=== PATIENT | female | born 1940 | race Caucasian/White ===

== ENCOUNTER → 2017-11-01 | Outpatient (CLI) | payer MEDICARE ==
[~2017-11-01] VITALS: Ht 160 cm; Wt 110.7 kg
[~2017-11-01] MED LIST: AC325T PO; AMLO5TAB2 PO; ASCO500T20 PO; ASP325T PO; CALC-80 PO; CATHETER FLUSH 10 ML SYR IV PRN; CHOL200049 PO; CYAN10006 PO; DCS100C PO; FENO135C PO; FEXO180T84 PO; FLUT16SP22 NS; GARL200T PO; HCT25T PO; LORA5TAB9 PO; MULT-974 PO; NAPR220T76 PO; OMEG1CAP51 PO; OMEP20CA12 PO; POTA99TA4 PO; PYRI100T2 PO; REGADENOSON 0.4 MG/5 ML SYR (LEXISCAN) IV ONE; RNT150T PO; SIMV40TA4 PO; VITA150T PO; VITA400T9 PO; [UNRECOGNIZED DRUG - CODE] PO
[2017-11-01 10:13] VITALS: BP 158/87
[2017-11-01 10:19] VITALS: BP 159/84
--- NOTE | 2017-11-01 17:42 | STRESS TEST ---
DATE OF SERVICE: 11/01/2017 LEXISCAN MYOVIEW STRESS TEST REPORT REFERRING PHYSICIAN: Aileen Farrell MD. Baseline heart rate is 76. Baseline blood pressure 157/81. Baseline EKG is sinus rhythm with no ischemic changes. In summary, the patient was injected with 10.65 mCi of technetium-99 Myoview and the resting images were obtained. Then, the patient received 0.4 mg of Lexiscan followed by 29.4 mCi of technetium-99 Myoview. Throughout the test, there were no EKG changes. The resting and stress images were reviewed and compared in the short axis, horizontal long axis, and vertical long axis views. Review of the images showed decreased uptake involving the mid to apical inferior wall, true apex and anteroapical segment with subtle reversibility. SSS is 6, SDS 2, TID value 0.83. On the gated images, the left ventricle appeared to be small in size with normal contractility. Calculated ejection fraction 92%, I believe it is an overestimation. CONCLUSION: 1. The patient tolerated Lexiscan well. 2. Extracardiac attenuation with mild ischemia involving the mid to apical inferior wall true apex. 3. Small left ventricular size with normal contractility, calculated ejection fraction 92%, I believe it is an overestimation of the left ventricular contractility. Job ID: [id number] DocumentID: [id number] Dictated Date: 11/01/2017 14:27:07 Missile Inspector Preflight Date: 11/01/2017 17:42:04 Dictated By: DIMITRY MONTES MD
== END ==
LOC: CARD 07:53
PROVIDERS: ATTEND Physician Assistant
DX: I25.10 Atherosclerotic heart disease of native coronary artery without angina pectoris (principal); I10 Essential (primary) hypertension; E78.2 Mixed hyperlipidemia; K21.9 Gastro-esophageal reflux disease without esophagitis
CPT/HCPCS: 78452; 93017

== ENCOUNTER 2017-11-15 06:48 | Day surgery (SDC) | payer MEDICARE ==
[~2017-11-15] VITALS: Ht 160 cm; Wt 110.7 kg
[2017-11-15] VITALS (12 sets, daily range): BP systolic 116–154; BP diastolic 59–86
[~2017-11-15 06:48] MED LIST changes: -CATHETER FLUSH 10 ML SYR IV PRN; -REGADENOSON 0.4 MG/5 ML SYR (LEXISCAN) IV ONE
--- OUTSIDE RECORDS SUMMARY | 2017-11-15 06:51 | XMS REPORT | Continuity of Care Document ---
Author Author [facility] Organization [facility] Address Unknown Phone Unavailable Allergies Active Description Code Type Severity Reaction Onset Reported/Identified Relationship to Patient Clinical Status Yes No Known Drug Allergies [id number] Drug Allergy Unknown N/A 08/29/2011 Medications There is no data. Problems Date Dx Coded Attending Type Code Diagnosis Diagnosed By 12/24/2014 Ot 786.09 12/24/2014 Ot 786.50 12/24/2014 DIMITRY MONTES MD Ot 272.4 12/24/2014 DIMITRY MONTES MD Ot 278.01 12/24/2014 DIMITRY MONTES MD Ot 401.9 12/24/2014 DIMITRY MONTES MD Ot 414.00 12/24/2014 DIMITRY MONTES MD Ot 272.4 12/24/2014 DIMITRY MONTES MD Ot 278.01 12/24/2014 DIMITRY MONTES MD Ot 401.9 12/24/2014 DIMITRY MONTES MD Ot 414.00 12/24/2014 DIMITRY MONTES MD Ot 272.4 12/24/2014 DIMITRY MONTES MD Ot 278.01 12/24/2014 DIMITRY MONTES MD Ot 401.9 12/24/2014 DIMITRY MONTES MD Ot 414.00 12/24/2014 DIMITRY MONTES MD Ot V85.41 12/24/2014 DIMITRY MONTES MD Ot 272.4 HYPERLIPIDEMIA NEC/NOS 12/24/2014 DIMITRY MONTES MD Ot 401.9 HYPERTENSION NOS 12/24/2014 DIMITRY MONTES MD Ot 414.01 CORONARY ATHEROSCLEROSIS OF [place] CORON 12/24/2014 DIMITRY MONTES MD Ot 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 12/24/2014 DIMITRY MONTES MD Ot 786.50 CHEST PAIN NOS 01/05/2015 DIMITRY MONTES MD Ot 518.89 01/12/2015 JYOTI MD, BASHAR J Ot 272.4 01/12/2015 JYOTI CALIXTO, BASJONATHAN J Ot 278.01 01/12/2015 JYOTI CALIXTO, BASHAR J Ot 401.9 01/12/2015 JYOTI CALIXTO, BASHAR J Ot 414.00 01/20/2015 JYOTI CALIXTO, BASHAR J Ot 272.4 01/20/2015 JYOTI CALIXTO, DIMITRY J Ot 278.01 01/20/2015 JYOTI CALIXTO, BASHAR J Ot 401.9 01/20/2015 JYOTI CALIXTO, BASHAR J Ot 414.00 01/20/2015 JYOTI CALIXTO, GELYHAR J Ot V85.41 02/06/2015 JYOTI CALIXTO, GELYHAR J Ot 272.4 02/06/2015 JYOTI CALIXTO, DIMITRY J Ot 278.01 02/06/2015 JYOTI CALIXTO, DIMITRY J Ot 401.9 02/06/2015 JYOTI CALIXTO, GELYHAR J Ot 414.00 02/06/2015 JYOTI CALIXTO, DIMITRY J Ot 272.4 02/06/2015 JYOTI CALIXTO, DIMITRY J Ot 278.01 02/06/2015 JYOTI CALIXTO, DIMITRY J Ot 401.9 02/06/2015 JYOTI CALIXTO, DIMITRY J Ot 414.00 02/06/2015 JYOTI CALIXTO, DIMITRY J Ot V85.41 02/14/2015 JYOTI CALIXTO, DIMITRY J Ot 518.89 02/14/2015 JYOTI CALIXTO, DIMITRY J Ot 518.89 11/01/2017 DIMITRY MONTES MD Ot 272.4 HYPERLIPIDEMIA NEC/NOS 11/01/2017 DIMITRY MONTES MD J Ot 278.01 MORBID OBESITY 11/01/2017 DIMITRY MONTES MD J Ot 401.9 HYPERTENSION NOS 11/01/2017 JYOTI CALIXTO, DIMITRY J Ot 414.00 CORON ATHEROSCLER NOS TYPE VESSEL, NATIV 11/01/2017 JYOTI CALIXTO, DIMITRY J Ot 272.4 HYPERLIPIDEMIA NEC/NOS 11/01/2017 JYOTI CALIXTO, DIMITRY J Ot 278.01 MORBID OBESITY 11/01/2017 JYOTI CALIXTO, DIMITRY J Ot 401.9 HYPERTENSION NOS 11/01/2017 JYOTI CALIXTO, DIMITRY J Ot 414.00 CORON ATHEROSCLER NOS TYPE VESSEL, NATIV 11/01/2017 DIMITRY MONTES MD J Ot 272.4 HYPERLIPIDEMIA NEC/NOS 11/01/2017 DIMITRY MONTES MD Ot 278.01 MORBID OBESITY 11/01/2017 DIMITRY MONTES MD Ot 401.9 HYPERTENSION NOS 11/01/2017 DIMITRY MONTES MD Ot 414.00 CORON ATHEROSCLER NOS TYPE VESSEL, NATIV 11/01/2017 DIMITRY MONTES MD Ot V85.41 BODY MASS INDEX 40.0-44.9, ADULT 11/01/2017 DIMITRY MONTES MD Ot 518.89 OTHER DISEASES OF LUNG, NEC 11/02/2017 KARIME DELUNA Ot E78.2 MIXED HYPERLIPIDEMIA 11/02/2017 KARIME DELUNA Ot I10 ESSENTIAL (PRIMARY) HYPERTENSION 11/02/2017 KARIME DELUNA Ot I25.10 ATHSCL HEART DISEASE OF [place] CORONARY 11/02/2017 KARIME DELUNA Ot K21.9 GASTRO-ESOPHAGEAL REFLUX DISEASE WITHOUT Procedures There is no data. Results There is no data. Encounters ACCT No. Visit Date/Time Discharge Status Pt. Type Provider Facility Loc./Unit Complaint [id number] 11/01/2017 07:53:00 11/01/2017 23:59:59 CLS Outpatient KARIME DELUNA [facility] CARD CAD [id number] 01/02/2015 08:40:00 01/02/2015 23:59:59 CLS Outpatient DIMITRY MONTES MD [facility] RAD LUNG DENSITY ON XRAY [id number] 12/24/2014 10:46:00 12/24/2014 19:04:00 DIS Outpatient DIMITRY MONTES MD [facility] CATH CAD HTN HLE ABNORMAL STRESS [id number] 12/17/2014 06:59:00 12/17/2014 23:59:59 CLS Outpatient DIMITRY MONTES MD [facility] CARD HTN,HLP,CAD [id number] 12/16/2014 11:35:00 12/16/2014 23:59:59 CLS Outpatient DIMITRY MONTES MD [facility] CARD HTN,HLP,CAD [id number] 12/09/2014 08:11:00 12/09/2014 23:59:59 CLS Outpatient DIMITRY MONTES MD [facility] CARD CAD,HTN,HLP, [id number] 11/15/2017 08:00:00 PEN Preadmit DIMITRY MONTES MD [facility] ABN STRESS TEST [id number] 08/30/2011 10:00:00 Document Registration
[2017-11-15] MEDS ORDERED: NS IV 1000 ML 1,000 ML ONE (06:54)
[2017-11-15] MEDS ORDERED: HEParin (CATH LAB) 2,000 ML IV ONE (06:54)
[2017-11-15] MEDS ORDERED: LIDOCAINE 1% INJ 50 ML (XYLOCAINE) VIAL ONE (06:54)
[2017-11-15] MEDS ORDERED: NS IV 1000 ML 1,000 ML IV SCH (07:00)
[2017-11-15 07:30] LABS: HEMOGLOBIN 13.7 G/DL (11.5-16.0); MEAN PLATELET VOLUME 9.1 FL (7.4-10.4); RED BLOOD COUNT 4.49 10^6/uL (4.35-5.85); RED CELL DISTRIBUTION WIDTH 14.1 % (10.0-14.5); WHITE BLOOD COUNT 5.4 10^3/uL (4.3-11.0)
--- NOTE | 2017-11-15 07:41 | Diagnostic Imaging Report ---
INDICATION: Coronary artery disease Portable chest 7:23 AM Heart size and pulmonary vascularity are normal. Lungs are clear. There are no effusions or pneumothoraces. IMPRESSION: Negative chest. Dictated by: Dictated on workstation # [id number]
[2017-11-15 07:42] LABS: INR 0.9 (0.8-1.4); PROTHROMBIN TIME PATIENT 12.6 SEC (12.2-14.7)
[2017-11-15 07:50] LABS: ALANINE AMINOTRANSFERASE 21 U/L (0-55); ALBUMIN 4.5 GM/DL (3.2-4.5); ALKALINE PHOSPHATASE 55 U/L (40-136); BILIRUBIN,TOTAL 0.5 MG/DL (0.1-1.0); BUN/CREATININE RATIO 20; CALCIUM 9.5 MG/DL (8.5-10.1); CARBON DIOXIDE 26 MMOL/L (21-32); CHLORIDE 101 MMOL/L (98-107); CHOLESTEROL 185 MG/DL (< 200); CREATININE SERUM 0.84 MG/DL (0.60-1.30); GFR ESTIMATED > 60; GLUCOSE 108 MG/DL (70-105); HDL CHOLESTEROL 51 MG/DL (40-60); POTASSIUM 3.8 MMOL/L (3.6-5.0); SODIUM 139 MMOL/L (135-145); TOTAL PROTEIN 7.6 GM/DL (6.4-8.2); TRIGLYCERIDES 143 MG/DL (<150); VLDL CHOLESTEROL 29 MG/DL (5-40)
[2017-11-15] MEDS ORDERED: ATOR20TA66 PO (07:52)
[2017-11-15] MEDS ORDERED: MIDAZOLAM 5 MG/5 ML (VERSED) VIAL ONE (07:56)
[2017-11-15] MEDS ORDERED: fentaNYL INJECTION 100 MCG/2 ML AMP ONE ×2 (07:56→09:53)
[2017-11-15] MEDS ORDERED: INFLUENZA TRIvalent 2017-2018 0.5 ML/45 MCG SYR IM ONE (08:00)
--- NOTE | 2017-11-15 08:07 | Cardiac Procedure Note-CS/ASA ---
Pre-Procedure Note Pre-Op Procedure Note H&P Reviewed The H&P was reviewed, patient examined and no changes noted. Date H&P Reviewed: Nov 15, 2017 Time H&P Reviewed: 08:07 Conscious Sedation Pre-Proced Time Reviewed: 08:07 ASA Class: 3 Airway Mallampati Classification: (big sandy appropriate class) I. II. III, IV Lungs Heart ASA score ASA 1: a normal healthy patient ASA 2: a patient with a mild systemic disease (mid diabetes, controlled hypertension, obesity x ASA 3: a patient with a severe systemic disease that limits activity (angina , COPD, prior Myocardial infarction) ASA 4: a patient with an incapacitating disease that is a constant threat to life (CHF, renal failure) ASA 5: a moribund patient not expected to survive 24 hrs. (ruptured aneurysm) ASA 6: a declared brain patient whose organs are being harvested. For emergent operations, add the letter E after the classification Grade 3 Sedation Plan: Analgesia, Amnesia, Plan communicated to team members, Discussed options with patient/fam, Discussed risks with patient/fam Note The patient is an appropriate candidate to undergo the planned procedure, sedation, and anesthesia. The patient immediately re-assessed prior to indication. DIMITRY MONTES MD Nov 15, 2017 08:07
[2017-11-15] MEDS ORDERED: ENOXAPARIN 100 MG/1 ML (LOVENOX) SYR ONE (08:33)
[2017-11-15] MEDS ORDERED: NITRO DRIP 25000 MCG/D5W 250 ML IV ONE (08:37)
[2017-11-15] MEDS ORDERED: ASPIRIN 81 MG CHEW (CHILDREN'S ASA) ONE (10:24)
[2017-11-15] MEDS ORDERED: CLOPIDOGREL 300 MG (PLAVIX) TABLET PO ONE (10:24)
[2017-11-15] MEDS ORDERED: ACETAMINOPHEN 325 MG TABLET/CAPLET (TYLENOL) PO PRN (10:30)
[2017-11-15] MEDS ORDERED: PATIENT MAY USE OWN MEDS, ALL PO SCH (10:30)
[2017-11-15] MEDS: NS IV 1000 ML 1,000 ML IV SCH ×3 (11:05→21:13)
--- NOTE | 2017-11-15 11:40 | Cardiac Cath Report ---
Cardiac Cath Report Physician (s)/Electrical Products Engineer (s) Physician DIMITRY MONTES MD Pre-Procedure Diagnosis Pre-Procedure Diagnosis: Chest pain, coronary artery disease Post-Procedure Note Procedure Start Date: Nov 15, 2017 Name of Procedure: Left heart catheterization Stent with angioplasty to the right coronary artery Findings/Procedure Note PROCEDURE NOTE: After explaining the procedure to the patient, all pros and cons were explained, all questions were answered. The patient signed the consent and then she was placed on the cardiac catheterization laboratory. The patient was placed on the cardiac catheterization laboratory. Groin was prepped SL fashion local anesthesia was used. Sheath placed in the artery. Beverly left was used to ask the left carotid system, Beverly right was used to cross the valve to the left ventricular cavity, pressure was measured, pullback was done. Patient had anomalous right coronary artery, I was able to evaluated with AL1 catheter.which showed ectasia with heavily calcified artery, the known 50 percent mid stenosis appeared to be more significant. Patient was given 77 g of IV Lovenox I attempted the procedure with AL1 guide, able to intubate the artery but did not achieve adequate support Closing the position of the guide, was unable to advance a balloon or stent and lost the position of the guide multiple times I exchanged it into hockey stick guide then advanced BMW wire. Try to primary stent I was unable to advance the stent below the proximal portion of the artery. After multiple attempts I decided to proceed with ballooning I used 3.0 20 balloon did multiple inflations at the proximal and mid and distal angiogram showed small dissection in the proximal, the distal appeared to be calcified. Tried again with the stent without success. Subsequently after multiple attempts and attempting to use billie wire without success I tried different type of stent without success. Then I ballooned the artery again and placed integrity stent 4015 mm in the proximal portion of the artery postdilated to 4.2 then did 40 ballooning then tried again with a 3.5 stent without success finally I used integrity stent 3.09 mm and parted distally postdilated to 3.5 mm with balloon then attempted to have an overlapping stent with it in the proximal with 3.5 without success when I deployed integrity stent 3.512 mm there was a small gap between both stents I advanced 40 balloon and postdilated everything to 4.0 diameter and attempted with the stent again and used integrity 3.59 mm and covered the gap, postdilated everything again to 4.1 mm angiogram showed excellent result At the end of the procedure the sheath was removed. Closure device used FINDINGS: Hemodynamics LV 126/26, end-diastolic pressure of 26 Aorta 124/66 mean of 91 ANATOMY: Left Main is free of disease Left Anterior Descending his tortuous with mild disease nonobstructive disease Left Circumflex is nondominant artery with mild disease nonobstructive disease Right Coronory Artery is tortuous artery, heavily calcified with ectasia, complex intervention with multiple guides, wires and stent. the end results were excellent after deployment of 4 stents all drug-eluting integrity resolute proximally 4.015 followed by 3.512 followed by 3.59 and 3.09, all expanded to 4 mm distally and 4.2 mm proximally with excellent results LV Gram was not done, pressure was measured CONCLUSION: 1. Ectasia with heavily calcified artery with severe stenosis at the midportion , complex intervention using multiple wires and guides as described above then deployment of 4 stents all stents were resolute integrity drug-eluting stents starting proximally with 4.015 mm followed by 3.512 mm followed by 3.59 mm then 3.09 mm they're all expanded to 4 mm in diameter, the proximal portion was 4.2. Excellent results with no residual stenosis 2. Mild disease in the LAD, nondominant small circumflex artery DISCUSSION AND RECOMMENDATION: Maximize medical therapy and monitor renal function due to the complexity of the procedure that required large amount of radiation and contrast use Primary physician: Dr. Aileen Farrell Anesthesia Type: Conscious Sedation Estimated blood loss (mL): 25 ml Contrast Amount: 275 ml Total Radiation Dose: 3961 mGy Post-Procedure Diagnosis Post-operative diagnosis: Coronary artery disease Chest pain nonspecific etiology Hypertension Hyperlipidemia DIMITRY MONTES MD Nov 15, 2017 11:40
[2017-11-15] MEDS ORDERED: FISH OIL PO SCH (13:00)
[2017-11-15] MEDS ORDERED: OMEGA PO SCH (13:00)
[2017-11-15] MEDS ORDERED: FATTY ACIDS PO SCH (13:00)
[2017-11-15] MEDS ORDERED: PANTOPRAZOLE 20 MG TABLET (PROTONIX) PO SCH (13:00)
[2017-11-15] MEDS ORDERED: [UNRECOGNIZED DRUG - OTHER] PO SCH (13:00)
[2017-11-15] MEDS ORDERED: ATORVASTATIN 20 MG (LIPITOR) TABLET PO SCH ×2 (21:00)
[2017-11-15] MEDS: OMEGA 3 (FISH OIL) 1000 MG CAP PO SCH (21:12)
[2017-11-15] MEDS: OMEPRAZOLE 20 MG (PriLOSEC) CAP NON-FORMULARY PO SCH (21:12)
[2017-11-16] VITALS: BP 142/77
[2017-11-16] MEDS: NS IV 1000 ML 1,000 ML IV SCH ×2 (01:28→08:03)
[2017-11-16 03:40] LABS: HEMOGLOBIN 12.7 G/DL (11.5-16.0); MEAN PLATELET VOLUME 9.2 FL (7.4-10.4); RED BLOOD COUNT 4.25 10^6/uL (4.35-5.85); RED CELL DISTRIBUTION WIDTH 14.3 % (10.0-14.5); WHITE BLOOD COUNT 6.4 10^3/uL (4.3-11.0)
[2017-11-16 04:00] VITALS: BP 141/83
[2017-11-16 04:04] LABS: BUN/CREATININE RATIO 14; CALCIUM 8.9 MG/DL (8.5-10.1); CARBON DIOXIDE 19 MMOL/L (21-32); CHLORIDE 107 MMOL/L (98-107); CREATININE SERUM 0.72 MG/DL (0.60-1.30); GFR ESTIMATED > 60; GLUCOSE 107 MG/DL (70-105); POTASSIUM 3.8 MMOL/L (3.6-5.0); SODIUM 141 MMOL/L (135-145)
[2017-11-16] MEDS: OMEGA 3 (FISH OIL) 1000 MG CAP PO SCH (06:32)
[2017-11-16] MEDS ORDERED: ASCORBIC ACID (VIT C) 500 MG TABLET PO SCH (08:00)
[2017-11-16] MEDS: OMEPRAZOLE 20 MG (PriLOSEC) CAP NON-FORMULARY PO SCH (08:16)
--- NOTE | 2017-11-16 08:16 | Cardiology Progress Note ---
Subjective Date Seen by Provider: Nov 16, 2017 Time Seen by Provider: 08:16 Subjective/Events-last exam Patient is feeling well, denied any chest pain or shortness of breath. No palpitation, groin is healing well. Review of Systems General: No Chills, No Night Sweats, No Fatigue, No Malaise, No Appetite, No Other HEENT: No Head Aches, No Visual Changes, No Eye Pain, No Ear Pain, No Dysphasia , No Sinus Congestion, No Post Nasal Drip, No Sore Throat, No Other Pulmonary: No Dyspnea, No Cough, No Pleuritic Chest Pain, No Other Cardiovascular: No: Chest Pain, Palpitations, Orthopnea, Paroxysmal Noc. Dyspnea, Edema, Lt Headedness, Other Objective-Cardiology Exam Last Set of Vital Signs Vital Signs 11/15/17 11/16/17 12:30 04:00 Temp 97.7 Pulse 75 Resp 18 B/P (MAP) 141/83 (102) Pulse Ox 93 O2 Delivery Room Air O2 Flow Rate 2.00 Capillary Refill : Less Than 3 Seconds I&O Intake and Output 11/16/17 00:00 Intake Total 520 ml Balance 520 ml Intake Oral 520 ml # Voids 7 General: Alert, Oriented X3, Cooperative HEENT: Atraumatic, PERRLA Neck: Supple, No JVD, No Thyromegaly Lungs: Clear to Auscultation, Normal Air Movement Heart: Regular Rate, Normal S1, Normal S2, No Murmurs Abdomen: Normal Bowel Sounds, Soft, No Tenderness, No Hepatosplenomegaly, No Masses Extremities: No Clubbing, No Cyanosis, No Edema, Normal Pulses, No Tenderness/ Swelling Skin: No Rashes, No Breakdown, No Significant Lesion Neuro: Normal Gait, Normal Speech, Strength at 5/5 X4 Ext, Normal Tone, Sensation Intact Psych/Mental Status: Mental Status NL, Mood NL Results Lab Laboratory Tests 11/16/17 03:20 A/P-Cardiology Admission Diagnosis Coronary artery disease Chest pain nonspecific etiology Hypertension Hyperlipidemia Assessment/Plan Coronary artery disease status post complex intervention on the right coronary artery with excellent results 1. Ectasia with heavily calcified artery with severe stenosis at the midportion , complex intervention using multiple wires and guides as described above then deployment of 4 stents all stents were resolute integrity drug-eluting stents starting proximally with 4.015 mm followed by 3.512 mm followed by 3.59 mm then 3.09 mm they're all expanded to 4 mm in diameter, the proximal portion was 4.2. Excellent results with no residual stenosis 2. Mild disease in the LAD, nondominant small circumflex artery Hypertension, restart home medication monitor blood pressure Chest pain nonspecific etiology, resolved Hyperlipidemia, continue to monitor blood pressure DIMITRY MONTES MD Nov 16, 2017 08:16
[2017-11-16] MEDS ORDERED: CLOP75TA28 PO (08:18)
[2017-11-16] MEDS ORDERED: ASPI-983 PO (08:18)
--- NOTE | 2017-11-16 08:19 | Discharge Inst-Post CATH ---
Discharge Inst-CATH Post Cardiac Cath D/C Inst Follow Up/Plan Please stop aspirin 325 mg and use baby aspirin 81 mg daily instead Take Plavix 75 mg daily Avoid Aleve if possible Appointment with Dr. Stacy's office in 2-4 weeks CARDIAC CATH DISCHARGE INSTRUCTIONS *Hold Metformin for 48 hours post heart cath. ACTIVITY * Go Home directly and rest. * Limit activity of the leg (or wrist if it was used) for 7 days including aerobics, swimming, jogging, bicycling, etc. * Restrict stair-climbing for 7 days if possible, if not, climb up with your non -cath leg, then bring together on the same step. * Avoid lifting, pushing, pulling or excessive movement of the affected extremity for 7 days. * Customary sexual activity may be resumed after 2 days-use caution not to use a position that strains or causes pain to the affected extremity. * No driving for 24 hours. * NO SMOKING. * Avoid straining for bowel movements for 7 days. * Gentle walking on level ground is allowed. * Returning to work will depend on the type of procedure and the results. Your doctor will discuss this with you. CALL YOUR DOCTOR FOR ANY OF THE FOLLOWING: *If bleeding from the puncture site occurs- Apply gentle pressure to site with clean cloth and call your doctor or EMS. * If a knot or lump forms under the skin, increases in size, or causes pain. * If bruising appears to be worsening or moving further down your leg instead of disappearing. * Temperature above 101 F. CARE OF YOUR GROIN INCISION; * Bruising or purple discoloration of the skin near the puncture site is common. * You may shower only, no bathtub bathing for 5 days. Be careful to avoid slipping as your leg may feel stiff. * If a closure device was used on your femoral artery, please see the attached guide regarding care of the device and your leg. * REMOVE the dressing from your groin the next day after your procedure in the shower. CARE OF YOUR WRIST INCISION; * Bruising or purple discoloration of the skin near the puncture site is common. * You may shower. * DO NOT submerge wrist. * Remove dressing in 24 hours. DIMITRY STACY MD Nov 16, 2017 08:19
[2017-11-16 08:20] VITALS: BP 139/82
[2017-11-16] MEDS ORDERED: CLOPIDOGREL 75 MG (PLAVIX) TABLET PO SCH (09:00)
[2017-11-16] MEDS ORDERED: ASPIRIN E.C. 81 MG (ECOTRIN) TAB PO SCH (09:00)
[2017-11-16] MEDS ORDERED: amLODIPine 5 MG (NORVASC) TAB PO SCH ×2 (09:00)
[2017-11-16] MEDS ORDERED: POTASSIUM 99 MG PO SCH (09:00)
[2017-11-16] MEDS ORDERED: FEXOFENADINE 180 MG (ALLEGRA) TAB (NON-FORMULARY) PO SCH (09:00)
[2017-11-16] MEDS ORDERED: LORATADINE (CLARITIN) 10 MG TAB PO SCH (09:00)
[2017-11-16] MEDS ORDERED: HYDROCHLOROTHIAZIDE 25 MG (HCTZ) TAB PO SCH ×2 (09:00)
[2017-11-16 09:35] VITALS: BP 139/82
== END 2017-11-16 09:35 | disposition home or self-care (01) ==
LOC: CATH 06:48 → SURG 10:49 → ICU 14:00 → CATH 11-16 09:35
PROVIDERS: ATTEND Internal Medicine Cardiovascular Disease
DX: I25.10 Atherosclerotic heart disease of native coronary artery without angina pectoris (principal); E07.9 Disorder of thyroid, unspecified; I10 Essential (primary) hypertension; E78.5 Hyperlipidemia, unspecified; K21.9 Gastro-esophageal reflux disease without esophagitis; Z82.49 Family history of ischemic heart disease and other diseases of the circulatory system; Z79.899 Other long term (current) drug therapy; Z88.8 Allergy status to other drugs, medicaments and biological substances; E66.9 Obesity, unspecified; Z68.41 Body mass index [BMI] 40.0-44.9, adult; Z11.2 Encounter for screening for other bacterial diseases
CPT/HCPCS: 36415; 71045; 80048; 80053; 80061; 85027; 85610; 85730; 87081; 93005; 93458

== ENCOUNTER → 2018-12-31 | Outpatient (CLI) | payer MEDICARE ==
[~2018-12-31] VITALS: Ht 160 cm; Wt 103.4 kg
[~2018-12-31] MED LIST changes: +ASPI-983 PO; +ATOR20TA66 PO; +CATHETER FLUSH 10 ML SYR IV PRN; +CLOP75TA28 PO; +REGADENOSON 0.4 MG/5 ML SYR (LEXISCAN) IV ONE
[2018-12-31 09:09] VITALS: BP 134/77
[2018-12-31 09:12] VITALS: BP 138/79
--- NOTE | 2019-01-01 00:08 | STRESS TEST ---
DATE OF SERVICE: 12/31/2018 LEXISCAN MYOVIEW STRESS TEST REPORT REFERRING PHYSICIAN: Aileen Farrell MD Baseline heart rate is 60, baseline blood pressure 134/77. Baseline EKG is sinus rhythm with no ischemic changes. In summary, the patient was injected with 10.94 mCi of technetium-99 Myoview and the resting images were obtained. Then, the patient received 0.4 mg of Lexiscan followed by 31.1 mCi of technetium-99 Myoview. Throughout the test, there were no EKG changes. The resting and stress images were reviewed and compared in the short axis, horizontal long axis, and vertical long axis views. Review of the images showed breast attenuation affecting the quality of the images. There is decreased uptake involving the whole anterior wall and anterolateral wall with reversible ischemia. SSS is 12. SDS is 10. TID value 0.98. On the gated images, the left ventricle appeared to be small in size with normal contractility. Calculated ejection fraction 88%. CONCLUSION: 1. The patient tolerated Lexiscan well. 2. Breast attenuation with reversible ischemia involving the whole anterior wall and anterolateral wall. 3. Small left ventricular size with normal contractility. Calculated ejection fraction 88%. Job ID: [id number] DocumentID: [id number] Dictated Date: 12/31/2018 16:51:23 Manager Medicare Date: 01/01/2019 00:07:17 Dictated By: DIMITRY MONTES MD
== END ==
LOC: CARD 07:29
PROVIDERS: ATTEND Internal Medicine Cardiovascular Disease
DX: I25.10 Atherosclerotic heart disease of native coronary artery without angina pectoris (principal); I10 Essential (primary) hypertension; E78.2 Mixed hyperlipidemia; J44.9 Chronic obstructive pulmonary disease, unspecified; K21.9 Gastro-esophageal reflux disease without esophagitis
CPT/HCPCS: 78452; 93017

== ENCOUNTER 2019-01-09 12:36 | Day surgery (SDC) | payer MEDICARE ==
[~2019-01-09] VITALS: Ht 161.3 cm; Wt 105.7 kg
[2019-01-09] VITALS (14 sets, daily range): BP systolic 98–147; BP diastolic 51–89
[~2019-01-09 12:36] MED LIST changes: -CATHETER FLUSH 10 ML SYR IV PRN; -REGADENOSON 0.4 MG/5 ML SYR (LEXISCAN) IV ONE
[2019-01-09] MEDS ORDERED: HEParin 1000 UNIT/ML (10ML VIAL) FOR BOLUS ONE (12:58)
[2019-01-09] MEDS ORDERED: LIDOCAINE 1% INJ 20 ML 20 ML VIAL ONE (12:58)
[2019-01-09] MEDS ORDERED: NS IV 1000 ML 1,000 ML IV SCH ×2 (12:58→16:03)
[2019-01-09] MEDS ORDERED: NS IV 1000 ML 3,000 ML ONE (12:59)
[2019-01-09 13:41] LABS: BILIRUBIN,URINE NEGATIVE (NEGATIVE); CLARITY,URINE CLEAR; COLOR,URINE YELLOW; GLUCOSE, URINE (UA) NEGATIVE (NEGATIVE); KETONES,URINE NEGATIVE (NEGATIVE); LEUKOCYTE ESTERASE ,URINE 1+ (NEGATIVE); NITRITE,URINE NEGATIVE (NEGATIVE); PH,URINE 7 (5-9); PROTEIN,URINE NEGATIVE (NEGATIVE); UROBILINOGEN,URINE NORMAL (NORMAL)
[2019-01-09 13:43] LABS: HEMOGLOBIN 13.4 G/DL (11.5-16.0); MEAN PLATELET VOLUME 8.6 FL (7.4-10.4); RED CELL DISTRIBUTION WIDTH 14.6 % (10.0-14.5); WHITE BLOOD COUNT 6.7 10^3/uL (4.3-11.0)
[2019-01-09 13:49] LABS: AMORPHOUS SEDIMENT,UR RARE AMOR PHOSPHATE /LPF; BACTERIA,URINE NEGATIVE /HPF
[2019-01-09 13:53] LABS: INR 0.9 (0.8-1.4)
[2019-01-09 14:00] LABS: ALANINE AMINOTRANSFERASE 23 U/L (0-55); ALBUMIN 4.4 GM/DL (3.2-4.5); ALKALINE PHOSPHATASE 47 U/L (40-136); BILIRUBIN,TOTAL 0.7 MG/DL (0.1-1.0); BUN/CREATININE RATIO 17; CALCIUM 9.8 MG/DL (8.5-10.1); CARBON DIOXIDE 27 MMOL/L (21-32); CHLORIDE 102 MMOL/L (98-107); CHOLESTEROL 176 MG/DL (< 200); CREATININE SERUM 0.82 MG/DL (0.60-1.30); GFR ESTIMATED > 60; GLUCOSE 101 MG/DL (70-105); HDL CHOLESTEROL 47 MG/DL (40-60); POTASSIUM 3.8 MMOL/L (3.6-5.0); SODIUM 139 MMOL/L (135-145); TOTAL PROTEIN 7.4 GM/DL (6.4-8.2); TRIGLYCERIDES 139 MG/DL (<150); VLDL CHOLESTEROL 28 MG/DL (5-40)
--- NOTE | 2019-01-09 14:04 | Diagnostic Imaging Report ---
INDICATION: Coronary artery disease. EXAMINATION: Portable chest at 1:38 PM. FINDINGS: The heart size and pulmonary vascularity are normal. The lungs are clear. There are no effusions or pneumothoraces. IMPRESSION: Negative chest. Dictated by: Dictated on workstation # [id number]
--- OUTSIDE RECORDS SUMMARY | 2019-01-09 14:21 | XMS REPORT | Continuity of Care Document ---
Author Organization Unknown Address Unknown Allergies Active Description Code Type Severity Reaction Onset Reported/Identified Relationship to Patient Clinical Status Yes No Known Drug Allergies [id number] Drug Allergy Unknown N/A 08/29/2011 Medications There [...] MONTES MD Ot 414.01 CORONARY ATHEROSCLEROSIS OF [place] CORON 12/24/2014 DIMITRY MONTES MD Ot 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 12/24/2014 DIMITRY MONTES MD Ot 786.50 CHEST PAIN NOS 01/05/2015 DIMITRY MONTES MD Ot 518.89 01/12/2015 DIMITRY MONTES MD Ot 272.4 01/12/2015 DIMITRY MONTES MD J Ot 278.01 01/12/2015 JYOTI CALIXTO, DIMITRY J Ot 401.9 01/12/2015 JYOTI CALIXTO, DIMITRY J Ot 414.00 01/20/2015 JYOTI CALIXTO, DIMITRY J Ot 272.4 01/20/2015 JYOTI CALIXTO, DIMITRY J Ot 278.01 01/20/2015 JYOTI CALIXTO, BASHAR J Ot 401.9 01/20/2015 JYOTI CALIXTO, GELYHAR J Ot 414.00 01/20/2015 JYOTI CALIXTO, DIMITRY J Ot V85.41 02/06/2015 JYOTI CALIXTO, DIMITRY J Ot 272.4 02/06/2015 JYOTI CALIXTO, GELYHAR J Ot 278.01 02/06/2015 JYOTI CALIXTO, DIMITRY [...] J Ot 518.89 11/01/2017 DIMITRY MONTES MD J Ot 272.4 HYPERLIPIDEMIA NEC/NOS 11/01/2017 DIMITRY MONTES MD J Ot 278.01 MORBID OBESITY 11/01/2017 DIMITRY MONTES MD J Ot 401.9 HYPERTENSION NOS 11/01/2017 DIMITRY MONTES MD J Ot 414.00 CORON ATHEROSCLER NOS TYPE VESSEL, NATIV 11/01/2017 DIMITRY MONTES MD J Ot 272.4 HYPERLIPIDEMIA NEC/NOS 11/01/2017 DIMITRY MONTES MD J Ot 278.01 MORBID OBESITY 11/01/2017 DIMITRY MONTES MD J Ot 401.9 HYPERTENSION NOS 11/01/2017 DIMITRY MONTES MD J Ot 414.00 CORON ATHEROSCLER NOS TYPE [...] DELUNA Ot I25.10 ATHSCL HEART DISEASE OF [place] CORONARY 11/02/2017 KARIME DELUNA Ot K21.9 GASTRO-ESOPHAGEAL REFLUX DISEASE WITHOUT 11/14/2017 DIMITRY MONTES MD Ot 272.4 HYPERLIPIDEMIA NEC/NOS 11/14/2017 DIMITRY MONTES MD Ot 278.01 MORBID OBESITY 11/14/2017 DIMITRY MONTES MD Ot 401.9 HYPERTENSION NOS 11/14/2017 DIMITRY MONTES MD Ot 414.00 CORON ATHEROSCLER NOS TYPE VESSEL, NATIV 11/14/2017 DIMITRY MONTES MD Ot 272.4 HYPERLIPIDEMIA NEC/NOS 11/14/2017 DIMITRY MONTES MD Ot 278.01 MORBID OBESITY 11/14/2017 DIMITRY MONTES MD Ot 401.9 HYPERTENSION NOS 11/14/2017 DIMITRY MONTES MD Ot 414.00 CORON ATHEROSCLER NOS TYPE VESSEL, NATIV 11/14/2017 DIMITRY MONTES MD Ot 272.4 HYPERLIPIDEMIA NEC/NOS 11/14/2017 DIMITRY MONTES MD Ot 278.01 MORBID OBESITY 11/14/2017 DIMITRY MONTES MD Ot 401.9 HYPERTENSION NOS 11/14/2017 DIMITRY MONTES MD Ot 414.00 CORON ATHEROSCLER NOS TYPE VESSEL, NATIV 11/14/2017 DIMITRY MONTES MD Ot V85.41 BODY MASS INDEX 40.0-44.9, ADULT 11/14/2017 DIMITRY MONTES MD Ot 518.89 OTHER DISEASES OF LUNG, NEC 11/14/2017 KARIME DELUNA Ot E78.2 MIXED HYPERLIPIDEMIA 11/14/2017 KARIME DELUNA Ot I10 ESSENTIAL (PRIMARY) HYPERTENSION 11/14/2017 KARIME DELUNA Ot I25.10 ATHSCL HEART DISEASE OF [place] CORONARY 11/14/2017 KARIME DELUNA Ot K21.9 GASTRO-ESOPHAGEAL REFLUX DISEASE WITHOUT 11/16/2017 DIMITRY MONTES MD Ot E07.9 DISORDER OF THYROID, UNSPECIFIED 11/16/2017 DIMITRY MONTES MD Ot E66.9 OBESITY, UNSPECIFIED 11/16/2017 DIMITRY MONTES MD Ot E78.5 HYPERLIPIDEMIA, UNSPECIFIED 11/16/2017 DIMITRY MONTES MD Ot I10 ESSENTIAL (PRIMARY) HYPERTENSION 11/16/2017 DIMITRY MONTES MD Ot I25.10 ATHSCL HEART DISEASE OF [place] CORONARY 11/16/2017 DIMITRY MONTES MD Ot K21.9 GASTRO-ESOPHAGEAL REFLUX DISEASE WITHOUT 11/16/2017 DIMITRY MONTES MD Ot Z11.2 ENCOUNTER FOR SCREENING FOR OTHER BACTER 11/16/2017 DIMITRY MONTES MD Ot Z68.41 BODY MASS INDEX (BMI) 40.0-44.9, ADULT 11/16/2017 DIMITRY MONTES MD Ot 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 11/16/2017 DIMITRY MONTES MD Ot Z82.49 FAMILY HX OF [place] HEART DIS AND OTH DI 11/16/2017 DIMITRY MONTES MD Ot Z88.8 ALLERGY STATUS TO [facility] DRUG/MEDS/BIOL SUB 11/16/2017 DIMITRY MONTES MD Ot E07.9 DISORDER OF THYROID, UNSPECIFIED 11/16/2017 DIMITRY MONTES MD Ot E66.9 OBESITY, UNSPECIFIED 11/16/2017 DIMITRY MONTES MD Ot E78.5 HYPERLIPIDEMIA, UNSPECIFIED 11/16/2017 DIMITRY MONTES MD Ot I10 ESSENTIAL (PRIMARY) HYPERTENSION 11/16/2017 DIMITRY MONTES MD Ot I25.10 ATHSCL HEART DISEASE OF [place] CORONARY 11/16/2017 DIMITRY MONTES MD Ot K21.9 GASTRO-ESOPHAGEAL REFLUX DISEASE WITHOUT 11/16/2017 DIMITRY MONTES MD Ot Z11.2 ENCOUNTER FOR SCREENING FOR OTHER BACTER 11/16/2017 DIMITRY MONTES MD Ot Z68.41 BODY MASS INDEX (BMI) 40.0-44.9, ADULT 11/16/2017 DMIITRY MONTES MD, Ot Z79.899 OTHER SKILLED NURSING (CURRENT) DRUG THERAPY 11/16/2017 DIMITRY MONTES MD, Ot Z82.49 FAMILY HX OF [place] HEART DIS AND OTH DI 11/16/2017 DIMITRY MONTES MD Ot Z88.8 ALLERGY STATUS TO [facility] DRUG/MEDS/BIOL SUB 11/21/2017 KARIME DELUNA Ot E78.2 MIXED HYPERLIPIDEMIA 11/21/2017 KARIME DELUNA Ot I10 ESSENTIAL (PRIMARY) HYPERTENSION 11/21/2017 KARIME DELUNA Ot I25.10 ATHSCL HEART DISEASE OF [place] CORONARY 11/21/2017 KARIME DELUNA Ot K21.9 GASTRO-ESOPHAGEAL REFLUX DISEASE WITHOUT 12/01/2017 KARIME DELUNA Ot E78.2 MIXED HYPERLIPIDEMIA 12/01/2017 KARIME DELUNA Ot I10 ESSENTIAL (PRIMARY) HYPERTENSION 12/01/2017 KARIME DELUNA Ot I25.10 ATHSCL HEART DISEASE OF [place] CORONARY 12/01/2017 KARIME DELUNA Ot K21.9 GASTRO-ESOPHAGEAL REFLUX DISEASE WITHOUT 12/28/2018 DIMITRY MONTES MD Ot 272.4 HYPERLIPIDEMIA NEC/NOS 12/28/2018 DIMITRY MONTES MD Ot 278.01 MORBID OBESITY 12/28/2018 DIMITRY MONTES MD Ot 401.9 HYPERTENSION NOS 12/28/2018 DIMITRY MONTES MD Ot 414.00 CORON ATHEROSCLER NOS TYPE VESSEL, NATIV 12/28/2018 DIMITRY MONTES MD Ot 272.4 HYPERLIPIDEMIA NEC/NOS 12/28/2018 DIMITRY MONTES MD Ot 278.01 MORBID OBESITY 12/28/2018 DIMITRY MONTES MD Ot 401.9 HYPERTENSION NOS 12/28/2018 DIMITRY MONTES MD Ot 414.00 CORON ATHEROSCLER NOS TYPE VESSEL, NATIV 12/28/2018 DIMITRY MONTES MD Ot 272.4 HYPERLIPIDEMIA NEC/NOS 12/28/2018 DIMITRY MONTES MD Ot 278.01 MORBID OBESITY 12/28/2018 DIMITRY MONTES MD Ot 401.9 HYPERTENSION NOS 12/28/2018 DIMITRY MONTES MD Ot 414.00 CORON ATHEROSCLER NOS TYPE VESSEL, NATIV 12/28/2018 DIMITRY MONTES MD Ot V85.41 BODY MASS INDEX 40.0-44.9, ADULT 12/28/2018 DIMITRY MONTES MD Ot 518.89 OTHER DISEASES OF LUNG, NEC 12/28/2018 KARIME DELUNA Ot E78.2 MIXED HYPERLIPIDEMIA 12/28/2018 KARIME DELUNA Ot I10 ESSENTIAL (PRIMARY) HYPERTENSION 12/28/2018 KARIME DELUNA Ot I25.10 ATHSCL HEART DISEASE OF [place] CORONARY 12/28/2018 KARIME DELUNA Ot K21.9 GASTRO-ESOPHAGEAL REFLUX DISEASE WITHOUT 01/01/2019 DIMITRY MONTES MD, Ot E78.2 MIXED HYPERLIPIDEMIA 01/01/2019 DIMITRY MONTES MD, Ot I10 ESSENTIAL (PRIMARY) HYPERTENSION 01/01/2019 DIMITRY MONTES MD, Ot I25.10 ATHSCL HEART DISEASE OF [place] CORONARY 01/01/2019 DIMITRY MONTES MD, Ot J44.9 CHRONIC OBSTRUCTIVE PULMONARY DISEASE, U 01/01/2019 DIMITRY MONTES MD, Ot K21.9 GASTRO-ESOPHAGEAL REFLUX DISEASE WITHOUT Procedures There is no data. Results Test Result Range Automated blood complete blood count (hemogram) panel - 11/15/17 07:22 Blood leukocytes automated count (number/volume) 5.4 10*3/uL 4.3-11.0 Blood erythrocytes automated count (number/volume) 4.49 10*6/uL 4.35-5.85 Venous blood hemoglobin measurement (mass/volume) 13.7 g/dL 11.5-16.0 Blood hematocrit (volume fraction) 40 % 35-52 Automated erythrocyte mean corpuscular volume 88 [foz_us] 80-99 Automated erythrocyte mean corpuscular hemoglobin (mass per erythrocyte) 31 pg 25-34 Automated erythrocyte mean corpuscular hemoglobin concentration measurement ( mass/volume) 35 g/dL 32-36 Automated erythrocyte distribution width ratio 14.1 % 10.0-14.5 Automated blood platelet count (count/volume) 256 10*3/uL 130-400 Automated blood platelet mean volume measurement 9.1 [foz_us] 7.4-10.4 PT panel in platelet poor plasma by coagulation assay - 11/15/17 07:22 Prothrombin time (PT) in platelet poor plasma by coagulation assay 12.6 s 12.2-14.7 INR in platelet poor plasma or blood by coagulation assay 0.9 0.8-1.4 Activated partial thromboplastin time (aPTT) in platelet poor plasma bycoagulation assay - 11/15/17 07:22 Activated partial thromboplastin time (aPTT) in platelet poor plasma bycoagulation assay 28 s 24-35 Comprehensive metabolic panel - 11/15/17 07:22 Serum or plasma sodium measurement (moles/volume) 139 mmol/L 135-145 Serum or plasma potassium measurement (moles/volume) 3.8 mmol/L 3.6-5.0 Serum or plasma chloride measurement (moles/volume) 101 mmol/L 98-107 Carbon dioxide 26 mmol/L 21-32 Serum or plasma anion gap determination (moles/volume) 12 mmol/L 5-14 Serum or plasma urea nitrogen measurement (mass/volume) 17 mg/dL 7-18 Serum or plasma creatinine measurement (mass/volume) 0.84 mg/dL 0.60-1.30 Serum or plasma urea nitrogen/creatinine mass ratio 20 NRG Serum or plasma creatinine measurement with calculation of estimated glomerular filtration rate > NRG Serum or plasma glucose measurement (mass/volume) 108 mg/dL 70-105 Serum or plasma calcium measurement (mass/volume) 9.5 mg/dL 8.5-10.1 Serum or plasma total bilirubin measurement (mass/volume) 0.5 mg/dL 0.1-1.0 Serum or plasma alkaline phosphatase measurement (enzymatic activity/volume) 55 U/L 40-136 Serum or plasma aspartate aminotransferase measurement (enzymatic activity/ volume) 23 U/L 5-34 Serum or plasma alanine aminotransferase measurement (enzymatic activity/volume ) 21 U/L 0-55 Serum or plasma protein measurement (mass/volume) 7.6 g/dL 6.4-8.2 Serum or plasma albumin measurement (mass/volume) 4.5 g/dL 3.2-4.5 Lipid 1996 panel - 11/15/17 07:22 Serum or plasma triglyceride measurement (mass/volume) 143 mg/dL <150 Serum or plasma cholesterol measurement (mass/volume) 185 mg/dL < 200 Serum or plasma cholesterol in HDL measurement (mass/volume) 51 mg/ dL 40-60 Cholesterol in LDL [mass/volume] in serum or plasma by direct assay 108 mg/dL 1-129 Serum or plasma cholesterol in VLDL measurement (mass/volume) 29 mg/ dL 5-40 Methicillin resistant Staphylococcus aureus (MRSA) screening culture - 07:22 Methicillin resistant Staphylococcus aureus (MRSA) screening culture NEG NRG Automated blood complete blood count (hemogram) panel - 11/16/17 03:20 Blood leukocytes automated count (number/volume) 6.4 10*3/uL 4.3-11.0 Blood erythrocytes automated count (number/volume) 4.25 10*6/uL 4.35-5.85 Venous blood hemoglobin measurement (mass/volume) 12.7 g/dL 11.5-16.0 Blood hematocrit (volume fraction) 38 % 35-52 Automated erythrocyte mean corpuscular volume 89 [foz_us] 80-99 Automated erythrocyte mean corpuscular hemoglobin (mass per erythrocyte) 30 pg 25-34 Automated erythrocyte mean corpuscular hemoglobin concentration measurement ( mass/volume) 34 g/dL 32-36 Automated erythrocyte distribution width ratio 14.3 % 10.0-14.5 Automated blood platelet count (count/volume) 242 10*3/uL 130-400 Automated blood platelet mean volume measurement 9.2 [foz_us] 7.4-10.4 Whole blood basic metabolic panel - 11/16/17 03:20 Serum or plasma sodium measurement (moles/volume) 141 mmol/L 135-145 Serum or plasma potassium measurement (moles/volume) 3.8 mmol/L 3.6-5.0 Serum or plasma chloride measurement (moles/volume) 107 mmol/L 98-107 Carbon dioxide 19 mmol/L 21-32 Serum or plasma anion gap determination (moles/volume) 15 mmol/L 5-14 Serum or plasma urea nitrogen measurement (mass/volume) 10 mg/dL 7-18 Serum or plasma creatinine measurement (mass/volume) 0.72 mg/dL 0.60-1.30 Serum or plasma urea nitrogen/creatinine mass ratio 14 NRG Serum or plasma creatinine measurement with calculation of estimated glomerular filtration rate > NRG Serum or plasma glucose measurement (mass/volume) 107 mg/dL 70-105 Serum or plasma calcium measurement (mass/volume) 8.9 mg/dL 8.5-10.1 Complete urinalysis with reflex to culture - 01/09/19 13:08 Urine color determination YELLOW NRG Urine clarity determination CLEAR NRG Urine pH measurement by test strip 7 5-9 Specific gravity of urine by test strip 1.010 1.016- 1.022 Urine protein assay by test strip, semi-quantitative NEGATIVE NEGATIVE Urine glucose detection by automated test strip NEGATIVE NEGATIVE Erythrocytes detection in urine sediment by light microscopy NEGATIVE NEGATIVE Urine ketones detection by automated test strip NEGATIVE NEGATIVE Urine nitrite detection by test strip NEGATIVE NEGATIVE Urine total bilirubin detection by test strip NEGATIVE NEGATIVE Urine urobilinogen measurement by automated test strip (mass/volume) NORMAL NORMAL Urine leukocyte esterase detection by dipstick 1+ NEGATIVE Automated urine sediment erythrocyte count by microscopy (number/high power field) NONE NRG Automated urine sediment leukocyte count by microscopy (number/high power field ) [HPF] NRG Bacteria detection in urine sediment by light microscopy NEGATIVE NRG Squamous epithelial cells detection in urine sediment by light microscopy 2-5 NRG Crystals detection in urine sediment by light microscopy PRESENT NRG Casts detection in urine sediment by light microscopy NONE NRG Mucus detection in urine sediment by light microscopy NEGATIVE NRG Complete urinalysis with reflex to culture NO NRG Amorphous sediment detection in urine sediment by light microscopy RARE BA PHOSPHATE NRG Automated blood complete blood count (hemogram) panel - 01/09/19 13:36 Blood leukocytes automated count (number/volume) 6.7 10*3/uL 4.3-11.0 Blood erythrocytes automated count (number/volume) 4.51 10*6/uL 4.35-5.85 Venous blood hemoglobin measurement (mass/volume) 13.4 g/dL 11.5-16.0 Blood hematocrit (volume fraction) 40 % 35-52 Automated erythrocyte mean corpuscular volume 89 [foz_us] 80-99 Automated erythrocyte mean corpuscular hemoglobin (mass per erythrocyte) 30 pg 25-34 Automated erythrocyte mean corpuscular hemoglobin concentration measurement ( mass/volume) 33 g/dL 32-36 Automated erythrocyte distribution width ratio 14.6 % 10.0-14.5 Automated blood platelet count (count/volume) 346 10*3/uL 130-400 Automated blood platelet mean volume measurement 8.6 [foz_us] 7.4-10.4 PT panel in platelet poor plasma by coagulation assay - 01/09/19 13:36 Prothrombin time (PT) in platelet poor plasma by coagulation assay 13.0 s 12.2-14.7 INR in platelet poor plasma or blood by coagulation assay 0.9 0.8-1.4 Activated partial thromboplastin time (aPTT) in platelet poor plasma bycoagulation assay - 01/09/19 13:36 Activated partial thromboplastin time (aPTT) in platelet poor plasma bycoagulation assay 35 s 24-35 Comprehensive metabolic panel - 01/09/19 13:36 Serum or plasma sodium measurement (moles/volume) 139 mmol/L 135-145 Serum or plasma potassium measurement (moles/volume) 3.8 mmol/L 3.6-5.0 Serum or plasma chloride measurement (moles/volume) 102 mmol/L 98-107 Carbon dioxide 27 mmol/L 21-32 Serum or plasma anion gap determination (moles/volume) 10 mmol/L 5-14 Serum or plasma urea nitrogen measurement (mass/volume) 14 mg/dL 7-18 Serum or plasma creatinine measurement (mass/volume) 0.82 mg/dL 0.60-1.30 Serum or plasma urea nitrogen/creatinine mass ratio 17 NRG Serum or plasma creatinine measurement with calculation of estimated glomerular filtration rate > NRG Serum or plasma glucose measurement (mass/volume) 101 mg/dL 70-105 Serum or plasma calcium measurement (mass/volume) 9.8 mg/dL 8.5-10.1 Serum or plasma total bilirubin measurement (mass/volume) 0.7 mg/dL 0.1-1.0 Serum or plasma alkaline phosphatase measurement (enzymatic activity/volume) 47 U/L 40-136 Serum or plasma aspartate aminotransferase measurement (enzymatic activity/ volume) 22 U/L 5-34 Serum or plasma alanine aminotransferase measurement (enzymatic activity/volume ) 23 U/L 0-55 Serum or plasma protein measurement (mass/volume) 7.4 g/dL 6.4-8.2 Serum or plasma albumin measurement (mass/volume) 4.4 g/dL 3.2-4.5 CALCIUM CORRECTED 9.5 mg/dL 8.5-10.1 Lipid 1996 panel - 01/09/19 13:36 Serum or plasma triglyceride measurement (mass/volume) 139 mg/dL <150 Serum or plasma cholesterol measurement (mass/volume) 176 mg/dL < 200 Serum or plasma cholesterol in HDL measurement (mass/volume) 47 mg/ dL 40-60 Cholesterol in LDL [mass/volume] in serum or plasma by direct assay 106 mg/dL 1-129 Serum or plasma cholesterol in VLDL measurement (mass/volume) 28 mg/ dL 5-40 Encounters ACCT No. Visit Date/Time Discharge Status Pt. Type Provider Facility Loc./Unit Complaint [id number] 12/31/2018 07:29:00 12/31/2018 23:59:59 CLS Outpatient DIMITRY MONTES MD [facility] CARD CAD, HTN, COPD [id number] 11/15/2017 06:48:00 11/16/2017 09:35:00 DIS Outpatient DIMITRY MONTES MD [facility] ABN STRESS TEST [id number] 11/01/2017 07:53:00 11/01/2017 23:59:59 CLS Outpatient KARIME DELUNA [facility] CARD CAD [id number] 01/02/2015 08:40:00 01/02/2015 23:59:59 CLS Outpatient DIMITRY MONTES MD [facility] RAD LUNG DENSITY ON XRAY [id number] 12/24/2014 10:46:00 12/24/2014 19:04:00 DIS Outpatient DIMITRY MONTES MD [facility] CATH CAD HTN HLE ABNORMAL STRESS [id number] 12/17/2014 06:59:00 12/17/2014 23:59:59 CLS Outpatient DIMITRY MONTES MD [facility] HTN,HLP,CAD [id number] 12/16/2014 11:35:00 12/16/2014 23:59:59 CLS Outpatient DIMITRY MONTES MD [facility] HTN,HLP,CAD [id number] 12/09/2014 08:11:00 12/09/2014 23:59:59 CLS Outpatient DIMITRY MONTES MD [facility] CARD CAD,HTN,HLP, [id number] 01/09/2019 15:00:00 BECCA MONTES MD, DIMITRY [facility] STRESS TEST [id number] 08/30/2011 10:00:00 Document Registration
[2019-01-09] MEDS ORDERED: OMEG-77 PO (14:26)
[2019-01-09] MEDS ORDERED: FEXO-46 PO (14:26)
[2019-01-09] MEDS ORDERED: MULT-178 PO (14:26)
[2019-01-09] MEDS ORDERED: ROSU5TAB PO (14:26)
[2019-01-09] MEDS ORDERED: RT-ALBUINH IH (14:26)
[2019-01-09] MEDS ORDERED: PYRI200T7 PO (14:26)
[2019-01-09] MEDS ORDERED: AMLO5TAB9 PO (14:26)
[2019-01-09] MEDS ORDERED: VITA1CAP PO (14:26)
[2019-01-09] MEDS ORDERED: HYDR25TA4 PO (14:26)
[2019-01-09] MEDS ORDERED: DOCU100C37 PO (14:26)
[2019-01-09] MEDS ORDERED: RANI150T90 PO (14:26)
[2019-01-09] MEDS ORDERED: POTA99TA21 PO (14:26)
[2019-01-09] MEDS ORDERED: ASCO500T7 PO (14:26)
[2019-01-09] MEDS ORDERED: ASPI-983 PO (14:26)
[2019-01-09] MEDS ORDERED: VITA400C60 PO (14:26)
[2019-01-09] MEDS ORDERED: CALC-6 PO (14:26)
[2019-01-09] MEDS ORDERED: MAGN500C15 PO (14:26)
[2019-01-09] MEDS ORDERED: GARL10002 PO (14:26)
[2019-01-09] MEDS ORDERED: CLOP75TA69 PO (14:26)
[2019-01-09] MEDS ORDERED: CHOL20002 PO (14:26)
[2019-01-09] MEDS ORDERED: FLUT1BLS IH (14:26)
[2019-01-09] MEDS ORDERED: CYAN500011 PO (14:26)
[2019-01-09] MEDS ORDERED: IPRA3AMP31 NEB (14:26)
[2019-01-09] MEDS ORDERED: UBID200C16 PO (14:26)
[2019-01-09] MEDS ORDERED: [UNRECOGNIZED DRUG - CODE] PO (14:26)
[2019-01-09] MEDS ORDERED: SODI30SP2 NSEACH (14:27)
--- NOTE | 2019-01-09 14:31 | NUR ---
PATIENT BROUGHT IN A DETAILED MEDICATION LIST, I WENT OVER THAT LIST WITH HER AND SHE VERIFIED HOW SHE TAKES EACH MEDICATION. I ALSO COMPARED IT WITH THE LIST ON THE CHART FROM THE OFFICE.
--- NOTE | 2019-01-09 15:11 | Cardiac Procedure Note-CS/ASA ---
Pre-Procedure Note Pre-Op Procedure Note H&P Reviewed The H&P was reviewed, patient examined and no changes noted. Date H&P Reviewed: Jan 09, 2019 Time H&P Reviewed: 15:11 Conscious Sedation Pre-Proced Time 15:11 ASA Score 3 For ASA 3 and 4: Consider anesthesia and medical clearance. Also, for patients with a history of failed moderate sedation consider anesthesia. Airway Lungs Heart ASA score ASA 1: a normal healthy patient ASA 2: a patient with a mild systemic disease (mid diabetes, controlled hypertension, obesity x ASA 3: a patient with a severe systemic disease that limits activity (angina , COPD, prior Myocardial infarction) ASA 4: a patient with an incapacitating disease that is a constant threat to life (CHF, renal failure) ASA 5: a moribund patient not expected to survive 24 hrs. (ruptured aneurysm) ASA 6: a declared brain- patient whose organs are being harvested. For emergent operations, add the letter E after the classification Mallampati Classification Grade 3 Sedation Plan Analgesia, Amnesia, Plan communicated to team members, Discussed options with patient/fam, Discussed risks with patient/fam The patient is an appropriate candidate to undergo the planned procedure, sedation, and anesthesia. The patient immediately re-assessed prior to indication. DIMITRY MONTES MD Jan 09, 2019 15:11
[2019-01-09] MEDS ORDERED: MIDAZOLAM 5 MG/5 ML (VERSED) VIAL ONE (15:14)
[2019-01-09] MEDS ORDERED: fentaNYL INJECTION 100 MCG/2 ML AMP ONE (15:14)
--- NOTE | 2019-01-09 16:06 | Discharge Inst-Post CATH ---
Discharge Inst-CATH/EP Post Cardiac Cath/EP D/C Inst Follow Up/Plan Appointment with Dr. Stacy's office in 2-4 weeks <b>CARDIAC CATH/EP PROCEDURE DISCHARGE INSTRUCTIONS</b> Cardiac Rehab Please be expecting a follow up call from Cardiac Rehab within in one week. ACTIVITY * Go Home directly and rest. * Limit activity of the leg (or wrist if it was used) for 7 days including aerobics, swimming, jogging, bicycling, etc. * Restrict stair-climbing for 7 days if possible, if not, climb up with your non -cath leg, then bring together on the same step. * Avoid lifting, pushing, pulling or excessive movement of the affected extremity for 7 days. * Customary sexual activity may be resumed after 2 days-use caution not to use a position that strains or causes pain to the affected extremity. * No driving for 24 hours. * NO SMOKING. * Avoid straining for bowel movements for 7 days. * Gentle walking on level ground is allowed. * Returning to work will depend on the type of procedure and the results. Your doctor will discuss this with you. CALL YOUR DOCTOR FOR ANY OF THE FOLLOWING: *If bleeding from the puncture site occurs- Apply gentle pressure to site with clean cloth and call your doctor or EMS. * If a knot or lump forms under the skin, increases in size, or causes pain. * If bruising appears to be worsening or moving further down your leg instead of disappearing. * Temperature above 101 F. CARE OF YOUR GROIN INCISION; * Bruising or purple discoloration of the skin near the puncture site is common. * You may shower only, no bathtub bathing for 5 days. Be careful to avoid slipping as your leg may feel stiff. * If a closure device was used on your femoral artery, please see the attached guide regarding care of the device and your leg. * Leave dressing on FOR 24 hours. CARE OF YOUR WRIST INCISION; * Bruising or purple discoloration of the skin near the puncture site is common. * You may shower. * DO NOT submerge wrist. * Leave dressing on FOR 24 hours. DIMITRY STACY MD Jan 09, 2019 16:05
--- NOTE | 2019-01-09 16:11 | Cardiac Cath Report ---
Cardiac Cath Report Physician (s)/Glass Or Mirror Inspector (s) Physician DIMITRY MONTES MD Pre-Procedure Diagnosis Pre-Procedure Diagnosis: Chest pain, coronary artery disease Post-Procedure Note Procedure Start Date: Jan 09, 2019 Name of Procedure: Left heart catheterization Aortic arch angiogram Abdominal aorta with bilateral runoff Findings/Procedure Note PROCEDURE NOTE: After explaining the procedure to the patient, all pros and cons were explained , all questions were answered. The patient signed the consent and then she was placed on the cardiac catheterization laboratory. Groin was prepped SL fashion local anesthesia was used. Sheath placed in the right femoral artery, I have difficulty advancing the Beverly left and J-wire, it was removed and I used a long stork wire and Beverly right catheter, advanced to the right coronary artery, angiogram was done then exchanged over long J-wire into Beverly left catheter advanced (system and angiogram was done then exchanged over long wire into pigtail catheter which was advanced to the left ventricular cavity and left ventricular gram was done, pullback LV to aorta was done and pressure was measured then aortic arch angiogram was done, the catheter was pulled to the abdominal aorta and abdominal aortogram with runoff to the bilateral SFA was done At the end of the procedure the sheath was removed. Closure device was used FINDINGS: Hemodynamics LV 143/17, end-diastolic pressure of 17 Aorta 145/64 more of 97 ANATOMY: Left Main as mild disease nonobstructive disease Left Anterior Descending has mild tortuosity with [id number] disease nonobstructive disease Left Circumflex has ovmb-no-stqplumr disease nonobstructive disease Right Coronory Artery has patent stent in the proximal and midportion with mild diffuse ectasia and slow flow LV Gram was not done, pressure was measured Aorta evaluation done with aortic arch angiogram and abdominal aortogram Aortic arch and gram showed heavy calcification in the aortic arch and the proximal portion of the innominate artery and carotids, some tortuosity with mild disease nonobstructive disease Abdominal aortogram done with a pigtail catheter above the renal artery showed mild hypertensive changes, renal arteries are normal, the bifurcation is normal with mild ectasia in the right common iliac artery some tortuosity at the iliac artery on the right, mild disease distally nonobstructive disease CONCLUSION: 1. Patent stent in the right coronary artery with diffuse ectasia and slow flow in the right carotid system, mild disease nonobstructive disease 2. Mild to moderate coronary disease and the LAD and circumflex artery nonobstructive disease 3. Normal left ventricular end-diastolic pressure 4. Hypertensive changes in the aortic arch and the great vessels of the neck 5. 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
[2019-01-09] MEDS ORDERED: PATIENT MAY USE OWN MEDS, ALL PO SCH (16:15)
--- NOTE | 2019-01-09 18:30 | NUR ---
GAVE BEDSIDE REPORT TO CYN BOONE.
== END 2019-01-09 20:30 | disposition home or self-care (01) ==
LOC: CATH 12:36 → ICU 18:24 → CATH 20:30
PROVIDERS: ATTEND Internal Medicine Cardiovascular Disease
DX: R07.9 Chest pain, unspecified (principal); I25.10 Atherosclerotic heart disease of native coronary artery without angina pectoris; I73.9 Peripheral vascular disease, unspecified; I10 Essential (primary) hypertension; E78.2 Mixed hyperlipidemia; J43.9 Emphysema, unspecified; E66.01 Morbid (severe) obesity due to excess calories; I65.29 Occlusion and stenosis of unspecified carotid artery; Z79.899 Other long term (current) drug therapy; Z82.49 Family history of ischemic heart disease and other diseases of the circulatory system; K21.9 Gastro-esophageal reflux disease without esophagitis; Z87.891 Personal history of nicotine dependence; Z95.5 Presence of coronary angioplasty implant and graft; M19.91 Primary osteoarthritis, unspecified site; Z68.41 Body mass index [BMI] 40.0-44.9, adult
CPT/HCPCS: 36221; 36415; 71045; 75630; 80053; 80061; 81000; 85027; 85610; 85730; 87081; 93458

== ENCOUNTER 2019-06-28 10:37 | Outpatient (CLI) | payer MEDICARE ==
[~2019-06-28] VITALS: Ht 162.6 cm; Wt 109.0 kg
[~2019-06-28 10:37] MED LIST changes: +AMLO5TAB9 PO; +ASCO500T7 PO; +CALC-6 PO; +CHOL20002 PO; +CLOP75TA69 PO; +CYAN500011 PO; +DOCU100C37 PO; +FEXO-46 PO; +FLUT1BLS IH; +GARL10002 PO; +HYDR25TA4 PO; +IPRA3AMP31 NEB; +MAGN500C15 PO; +MULT-178 PO; +OMEG-77 PO; +POTA99TA21 PO; +PYRI200T7 PO; +RANI150T90 PO; +ROSU5TAB PO; +RT-ALBUINH IH; +SODI30SP2 NSEACH; +UBID200C16 PO; +VITA1CAP PO; +VITA400C60 PO; +[UNRECOGNIZED DRUG - CODE] PO
[2019-06-28 10:46] VITALS: BP 139/68
== END 2019-06-28 11:00 | disposition home or self-care (01) ==
LOC: PREOP 10:37
PROVIDERS: ATTEND Orthopaedic Surgery
DX: Z01.818 Encounter for other preprocedural examination (principal)
CPT/HCPCS: 87081

== ENCOUNTER 2019-07-03 09:40 | Day surgery (SDC) | payer MEDICARE ==
--- NOTE | 2019-06-28 11:31 | HISTORY AND PHYSICAL ---
DATE OF SERVICE: ADMISSION HISTORY AND PHYSICAL This will be for outpatient surgery on 07/03/2019, for left carpal tunnel release. HISTORY OF PRESENT ILLNESS: The patient is a 79-year-old female with complaints of left hand pain and paresthesias. She underwent an EMG nerve conduction study, which revealed evidence of left carpal tunnel syndrome as well as mild radiculopathy. She reports night pain. She reports pain with repetitive activities. She reports pain when she squats. She denies thumb pain. Radiographs reveal severe CMC arthrosis, but no acute changes. REVIEW OF SYSTEMS: No chest pain, no shortness of breath, no dysuria. PAST MEDICAL HISTORY: Back pain, hypertension, hyperlipidemia, coronary artery disease, COPD. PAST SURGICAL HISTORY: Coronary stent placement, left knee, right carpal tunnel. FAMILY HISTORY: Noncontributory. PRIMARY CARE PROVIDER: Dr. Farrell. MEDICATIONS: 1. Ranitidine. 2. Hydrochlorothiazide. 3. Clopidogrel. 4. Amlodipine. 5. Rosuvastatin. 6. Seema. 7. Magnesium. 8. ProAir. 9. Breo Ellipta. 10. Albuterol inhaler. 11. Potassium. ALLERGIES: No known drug allergies. SOCIAL HISTORY: The patient denies alcohol, tobacco use. PHYSICAL EXAMINATION: GENERAL: The patient is well developed, well-nourished, in no acute distress. HEENT: Normocephalic, atraumatic. Pupils are equal, round, reactive to light. Oropharynx is clear. NECK: Supple, no lymphadenopathy. LUNGS: Clear to auscultation bilaterally. HEART: Regular rate and rhythm. ABDOMEN: Soft, nontender, nondistended. EXTREMITIES: Left hand demonstrates positive Tinel's of carpal tunnel with positive Phalen's maneuver. She has negative thumb grind test. She has decreased sensation in median distribution with mild thenar atrophy noted. IMPRESSION: Left carpal tunnel syndrome. PLAN: Left open carpal tunnel release. The risks, benefits, options, ramifications recovery were discussed at length with the patient. She understands and wishes to proceed. Job ID: [id number] DocumentID: [id number] Dictated Date: 06/27/2019 11:17:30 Platform Worker Date: 06/27/2019 11:38:07 Dictated By: RENAY PONCE MD
[2019-07-03] VITALS (10 sets, daily range): BP systolic 95–116; BP diastolic 42–84
[~2019-07-03] VITALS: Ht 162.6 cm; Wt 109.0 kg
[~2019-07-03 09:40] MED LIST changes: +HYDROcodone/APAP 7.5 MG/325 MG (LORTAB, LORCET PLUS) TABLET PO PRN
[2019-07-03] MEDS ORDERED: LACTATED RINGERS 1,000 ML IV PRN (09:44)
[2019-07-03] MEDS ORDERED: ceFAZolin INJECTION 1,000 MG in WATER (STERILE) FOR INJECTION 10 ML IV ONE (09:45)
--- NOTE | 2019-07-03 10:19 | Progress Note-Pre Operative ---
Pre-Operative Progress Note H&P Reviewed The H&P was reviewed, patient examined and no changes noted. Date Seen by Provider: Jul 03, 2019 Time Seen by Provider: 10:19 Date H&P Reviewed: Jul 03, 2019 Time H&P Reviewed: 10:19 Pre-Operative Diagnosis: left carpal tunnel syndrome RENAY PONCE MD Jul 03, 2019 10:19
--- NOTE | 2019-07-03 10:20 | Progress Note-Post Operative ---
Post-Operative Progess Note Surgeon (s)/Mail List Processor (s) Surgeon RENAY PONCE MD Mail List Processor: Wesley Talley Pre-Operative Diagnosis left carpal tunnel syndrome Post-Operative Diagnosis left carpal tunnel syndrome Procedure & Operative Findings Date of Procedure 07/03/19 Procedure Performed/Findings left carpal tunnel release Anesthesia Type MAC plus local Estimated Blood Loss Estimated blood loss (mL): minimal Specimens/Packing Specimens Removed none Packing: none RENAY PONCE MD Jul 03, 2019 10:20
[2019-07-03] MEDS ORDERED: proPOfol 200 MG/20 ML (DIPRIVAN) VIAL IV ONE (10:39)
[2019-07-03] MEDS ORDERED: ONDANSETRON 4 MG/2 ML (SDV) Z0FRAN ONE (10:39)
[2019-07-03] MEDS ORDERED: MIDAZOLAM 2 MG/2 ML (VERSED) VIAL ONE (10:41)
[2019-07-03] MEDS ORDERED: BUPIVACAINE 0.5% 30 ML (SENSORCAINE) VIAL ONE (10:58)
[2019-07-03] MEDS ORDERED: LIDOCAINE 1% INJ 20 ML 20 ML VIAL ONE (10:58)
[2019-07-03] MEDS ORDERED: ONDANSETRON 4 MG/2 ML (SDV) Z0FRAN IVP PRN (12:00)
[2019-07-03] MEDS ORDERED: MEPERIDINE (DEMEROL) INJ 50 MG/ML IVP ONE (12:00)
[2019-07-03] MEDS ORDERED: morphine INJ 10 MG/ML 1ML (SYR OR VIAL) IVP ONE (12:00)
[2019-07-03] MEDS ORDERED: HYDROmorphone 2 MG/ML VIAL (DILAUDID) IV ONE (12:00)
--- NOTE | 2019-07-03 12:19 | Anesthesia-General Post-Op ---
MAC Patient Condition Mental Status/LOC: Same as Preop Cardiovascular: Satisfactory Nausea/Vomiting: Absent Respiratory: Satisfactory Pain: Controlled Complications: Absent Post Op Complications Complications None Follow Up Care/Instructions Patient Instructions None needed. Anesthesiology Discharge Order Discharge Order Patient is doing well, no complaints, stable vital signs, no apparent adverse anesthesia problems. No complications reported per nursing. TONJA DE LA ROSA CRNA Jul 03, 2019 12:19
[2019-07-03] MEDS ORDERED: HYDR-3812 PO (13:12)
--- NOTE | 2019-07-03 15:54 | OPERATIVE REPORT ---
DATE OF SERVICE: 07/03/2019 PREOPERATIVE DIAGNOSIS: Left carpal tunnel syndrome. POSTOPERATIVE DIAGNOSIS: Left carpal tunnel syndrome. PROCEDURE PERFORMED: Left open carpal tunnel release. SURGEON: Mitchell Ponce MD PAPER PRODUCTS SUPERVISOR: LISS Ortiz, who assisted throughout the procedure and closed the incision. ANESTHESIA: Monitored anesthesia care plus local by Kaveh Berumen CRNA. TOURNIQUET TIME: 3 minutes at 250 mmHg. ESTIMATED BLOOD LOSS: Minimal. DRAINS: None. COMPLICATIONS: None. POSTOPERATIVE PLAN: Routine protocol. The patient was transferred to the recovery room awake and in stable condition. STATEMENT OF MEDICAL NECESSITY: The patient is a 79-year-old right-hand dominant female with complaints of left hand pain and paresthesias. She had a positive Tinel's of carpal tunnel with positive Phalen maneuver. She complained of pain with repetitive activities at night pain. Due to functional impairment and failure to improve with conservative measures, the patient elected to proceed with surgical intervention. DESCRIPTION OF PROCEDURE: After risks and benefits of procedure were discussed and questions were answered, informed consent was signed and placed on chart. The operative site was confirmed in the preoperative holding area initialed by the surgeon. The patient was then transferred to the operating room. After adequate levels of monitored anesthesia care were obtained, a timeout was called, confirming the operative site and under sterile conditions, incision site was infiltrated with combination of plain lidocaine and plain Marcaine. The left upper extremity was then prepped and draped in the usual sterile fashion with arm elevated, tourniquet was inflated to 250 mmHg. An incision was made in line with radial border of the ring finger and the midline soft tissues were carefully dissected exposing the transverse carpal ligament, which was then incised by pushing through with the scalpel blade. The median nerve was identified and carefully protected throughout the procedure and intact. At the conclusion of the procedure, proximally transverse carpal ligament was spread above and below with dissection scissors and then opened while carefully protecting the median nerve. This was confirmed, fully released with a freer. The tourniquet was deflated for a total time of three minutes. Pressure was used for hemostasis. The wound was further irrigated, 4-0 nylon was used to reapproximate the incision in a running alternating horizontal fashion. A soft dressing was applied and a brace and the patient was transferred to recovery room awake and in stable condition. Job ID: [id number] DocumentID: [id number] Dictated Date: 07/03/2019 11:49:37 Loader Operator Supervisor Date: 07/03/2019 15:53:52 Dictated By: MITCHELL PONCE MD
--- OUTSIDE RECORDS SUMMARY | 2019-07-26 04:50 | XMS REPORT | Continuity of Care Document ---
Author Organization Unknown POS Address Unknown SP Phone Unavailable SP Allergies Active Description Code Type Severity POS Reaction Onset Reported/Identified POS to Patient Clinical Status POS Yes NO KNOWN DRUG ALLERGIES UNKNOWN SP NO KNOWN DRUG ALLERG SP SP Yes NO KNOWN DRUG ALLERGIES UNKNOWN SP UNKNOWN SP Yes No Known Drug Allergies [id number] Drug SP Unknown N/A 08/29/2011 SP SP Medications Medication Packaging Start Date St op Date POS Route Dosage Sig POS LEVALBUTEROL LIQ 1.25 MG/3ML (XOPENEX) MG SP 12/22/2017 12/22/2017 SP ONCE&1041 LEVALBUTEROL LIQ 1.25 MG/3ML (XOPENEX) MG SP 12/22/2017 12/22/2017 SP PRN ONCE IPRATROPIUM/ALBUTEROL INH SO LN (DUO-NEB INH SOLN) SP MLS 12/22/2017 12/22/2017 SP ONCE&1213 SP IPRATROPIUM/ALBUTEROL INH SO LN (DUO-NEB INH SOLN) SP MLS 12/22/2017 12/23/2017 SP Q4H&0200,0600,1000,1800,2200 SP Docusate sodium 100mg oral capsule (COLACE ) SP 12/22/2017 01/21/2018 SP BID&0800,2000 METHYLPREDNISOLONE VIAL INJ 125 MG/2CC (SOLU-MEDROL VIAL) SP MG 12/22/2017 12/23/2017 SP BID&0800 SP BUDESONIDE/FORMOTEROL INH 16 0 /4.5MCG (SYMBICORT) SP PUFF 12/23/2017 12/29/2017 SP BID&0800,2000 SP AMLODIPINE TAB 5 MG (NORVASC) Dose(s) SP 12/29/2017 Daily&0900 SP CLOPIDOGREL TAB 75 MG (PLAVIX) Dose(s) SP 12/23/2017 12/29/2017 SP CEFUROXIME TAB 250 MG (CEFTIN) MG SP 12/25/2017 Daily&0900 SP ASPIRIN 81MG CHEWABLE TAB 81 MG (BABY ASPI RIN) SP 12/23/2017 12/29/2017 SP Daily&0900 HYDROCHLOROTHIAZIDE CAP 12.5 MG (HYDRODIUR IL) MG SP 12/23/2017 12/29/2017 SP Daily&0900 FEXOFENADINE TAB 180 MG (JUNIOR) Dose(s) SP 12/23/2017 12/29/2017 SP Daily&0900 FISH OIL CAP CAP 1000 MG (OMEGA 3) Dose(s) SP 12/23/2017 12/29/2017 SP Daily&0900 CALCIUM 500MG TAB 500 MG (OSCAL) Dose(s) SP 12/23/2017 12/29/2017 SP Daily&0900 PANTOPAZOLE VIAL INJ 40 MG (PROTONIX IV) MG SP 12/23/2017 12/25/2017 SP Daily&0900 PREDNISONE TAB 20 MG (DELTASONE) MG SP 12/24/2017 ONCE&0920 SP Problems Date Dx Coded Attending Type Code POS Diagnosed By POS 12/24/2014 Ot 786.09 SP 12/24/2014 Ot 786.50 SP 12/24/2014 DIMITRY MONTES MD Ot 272. 4 SP SP 12/24/2014 DIMITRY MONTES MD Ot 278. 01 SP SP 12/24/2014 DIMITRY MONTES MD Ot 401. 9 SP SP 12/24/2014 DIMITRY MONTES MD Ot 414. 00 SP SP 12/24/2014 DIMITRY MONTES MD Ot 272. 4 SP SP 12/24/2014 DIMITRY MONTES MD Ot 278. 01 SP SP 12/24/2014 DIMITRY MONTES MD Ot 401. 9 SP SP 12/24/2014 DIMITRY MONTES MD Ot 414. 00 SP SP 12/24/2014 DIMITRY MONTES MD Ot 272. 4 SP SP 12/24/2014 DIMITRY MONTES MD Ot 278. 01 SP SP 12/24/2014 DIMITRY MONTES MD Ot 401. 9 SP SP 12/24/2014 DIMITRY MONTES MD Ot 414. 00 SP SP 12/24/2014 DIMITRY MONTES MD Ot V85. 41 SP SP 12/24/2014 DIMITRY MONTES MD Ot 272. 4 SP NEC/NOS SP 12/24/2014 DIMITRY MONTES MD Ot 401. 9 SP NOS SP 12/24/2014 DIMITRY MONTES MD Ot 414. 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 85 SP ARTERY ANOMALY SP 12/24/2014 DIMITRY MONTES MD Ot 786. 50 SP PAIN NOS SP 01/05/2015 DIMITRY MONTES MD Ot 518. 89 SP SP 01/12/2015 DIMITRY MONTES MD Ot 272. 4 SP SP 01/12/2015 DIMITRY MONTES MD Ot 278. 01 SP SP 01/12/2015 DIMITRY MONTES MD Ot 401. 9 SP SP 01/12/2015 DIMITRY MONTES MD Ot 414. 00 SP SP 01/20/2015 DIMITRY MONTES MD Ot 272. 4 SP SP 01/20/2015 DIMITRY MONTES MD Ot 278. 01 SP SP 01/20/2015 DIMITRY MONTES MD Ot 401. 9 SP SP 01/20/2015 DIMITRY MONTES MD Ot 414. 00 SP SP 01/20/2015 DIMITRY MONTES MD Ot V85. 41 SP SP 02/06/2015 DIMITRY MONTES MD Ot 272. 4 SP SP 02/06/2015 DIMITRY MONTES MD Ot 278. 01 SP SP 02/06/2015 DIMITRY MONTES MD Ot 401. 9 SP SP 02/06/2015 DIMITRY MONTES MD Ot 414. 00 SP SP 02/06/2015 DIMITRY MONTES MD Ot 272. 4 SP SP 02/06/2015 DIMITRY MONTES MD Ot 278. 01 SP SP 02/06/2015 DIMITRY MONTES MD Ot 401. 9 SP SP 02/06/2015 DIMITRY MONTES MD Ot 414. 00 SP SP 02/06/2015 DIMITRY MONTES MD Ot V85. 41 SP SP 02/14/2015 DIMITRY MONTES MD Ot 518. 89 SP SP 02/14/2015 DIMITRY MONTES MD Ot 518. 89 SP SP 11/01/2017 DIMITRY MONTES MD Ot 272. 4 SP NEC/NOS SP 11/01/2017 DIMITRY MONETS MD Ot 278. 01 SP OBESITY SP 11/01/2017 JYOTI CALIXTO, DIMITRY Levin Ot 401. 9 SP NOS SP 11/01/2017 JYOTI CALIXTO, DIMITRY Levin Ot 414. 00 SP ATHEROSCLER NOS TYPE VESSEL, NATIV SP 11/01/2017 JYOTI CALIXTO, DIMITRY Levin Ot 272. 4 SP NEC/NOS SP 11/01/2017 JYOTI CALIXTO, DIMITRY J Ot 278. 01 SP OBESITY SP 11/01/2017 JYOTI CALIXTO, DIMITRY J Ot 401. 9 SP NOS SP 11/01/2017 JYOTI CALIXTO, DIMITRY J Ot 414. 00 SP ATHEROSCLER NOS TYPE VESSEL, NATIV SP 11/01/2017 JYOTI CALIXTO, DIMITRY Levin Ot 272. 4 SP NEC/NOS SP 11/01/2017 JYOTI CALIXTO, DIMITRY Levin Ot 278. 01 SP OBESITY SP 11/01/2017 JYOTI CALIXTO, DIMITRY Levin Ot 401. 9 SP NOS SP 11/01/2017 JYOTI CALIXTO, DIMITRY Levin Ot 414. 00 SP ATHEROSCLER NOS TYPE VESSEL, NATIV SP 11/01/2017 JYOTI CALIXTO, DIMITRY Levin Ot V85. 41 SP MASS INDEX 40.0-44.9, ADULT SP 11/01/2017 JYOTI CALIXTO, DIMITRY Levin Ot 518. 89 SP DISEASES OF LUNG, NEC SP 11/02/2017 KARIME DELUNA Ot E78.2 SP MIXED HYPERLIPIDEMIA SP 11/02/2017 KARIME DELUNA Ot I10 SP ESSENTIAL (PRIMARY) HYPERTENSION SP 11/02/2017 KARIME DELUNA Ot SP ATHSCL HEART DISEASE OF [place] CORONARY SP 11/02/2017 KARIME DELUNA Ot K21.9 SP GASTRO-ESOPHAGEAL REFLUX DISEASE WITHOUT SP 11/14/2017 JYOTI CALIXTO, DIMITRY Levin Ot 272. 4 SP NEC/NOS SP 11/14/2017 DIMITRY MONTES MD Ot 278. 01 SP OBESITY SP 11/14/2017 JYOTI CALIXTO, DIMITRY Levin Ot 401. 9 SP NOS SP 11/14/2017 JYOTI CALIXTO, DIMITRY Levin Ot 414. 00 SP ATHEROSCLER NOS TYPE VESSEL, NATIV SP 11/14/2017 DIMITRY MONTES MD Ot 272. 4 SP NEC/NOS SP 11/14/2017 JYOTI CALIXTO, DIMITRY Levin Ot 278. 01 SP OBESITY SP 11/14/2017 DIMITRY MONTES MD Ot 401. 9 SP NOS SP 11/14/2017 DIMITRY MONTES MD Ot 414. 00 SP ATHEROSCLER NOS TYPE VESSEL, NATIV SP 11/14/2017 DIMITRY MONTES MD Ot 272. 4 SP NEC/NOS SP 11/14/2017 DIMITRY MONTES MD Ot 278. 01 SP OBESITY SP 11/14/2017 DIMITRY MONTES MD Ot 401. 9 SP NOS SP 11/14/2017 DIMITRY MONTES MD Ot 414. 00 SP ATHEROSCLER NOS TYPE VESSEL, NATIV SP 11/14/2017 DIMITRY MONTES MD Ot V85. 41 SP MASS INDEX 40.0-44.9, ADULT SP 11/14/2017 DIMITRY MONTES MD Ot 518. 89 SP DISEASES OF LUNG, NEC SP 11/14/2017 KARIME DELUNA Ot E78.2 SP MIXED HYPERLIPIDEMIA SP 11/14/2017 KARIME DELUNA Ot I10 SP ESSENTIAL (PRIMARY) HYPERTENSION SP 11/14/2017 KARIME DELUNA Ot SP ATHSCL HEART DISEASE OF [place] CORONARY SP 11/14/2017 KARIME DELUNA Ot K21.9 SP GASTRO-ESOPHAGEAL REFLUX DISEASE WITHOUT SP 11/16/2017 DIMITRY MONTES MD Ot E07. 9 SP OF THYROID, UNSPECIFIED SP 11/16/2017 DIMITRY MONTES MD Ot E66. 9 SP UNSPECIFIED SP 11/16/2017 DIMITRY MONTES MD Ot E78. 5 SP UNSPECIFIED SP 11/16/2017 DIMITRY MONTES MD Ot I10 SP (PRIMARY) HYPERTENSION SP 11/16/2017 DIMITRY MONTES MD Ot I25. 10 SP HEART DISEASE OF [place] CORONARY SP 11/16/2017 DIMITRY MONTES MD Ot K21. 9 SPESOPHAGEAL REFLUX DISEASE WITHOUT SP 11/16/2017 DIMITRY MONTES MD Ot Z11. 2 SP FOR SCREENING FOR OTHER BACTER SP 11/16/2017 DIMITRY MONTES MD Ot Z68. 41 SP MASS INDEX (BMI) 40.0-44.9, ADULT SP 11/16/2017 DIMITRY MONTES MD, Ot Z79.899 SP OTHER PERSONAL SECURITY SPECIALIST (CURRENT) DRUG THERAPY SP 11/16/2017 DIMITRY MONTES MD Ot Z82. 49 SP HX OF I[place]HE[place] HEART DIS AND OTH DI SP 11/16/2017 DIMITRY MONTES MD Ot Z88. 8 SP STATUS TO OTH DRUG/MEDS/BIOL SUB SP 11/16/2017 DIMITRY MONTES MD Ot E07. 9 SP OF THYROID, UNSPECIFIED SP 11/16/2017 DIMITRY MONTES MD Ot E66. 9 SP UNSPECIFIED SP 11/16/2017 DIMITRY MONTES MD Ot E78. 5 SP UNSPECIFIED SP 11/16/2017 DIMITRY MONTES MD Ot I10 SP (PRIMARY) HYPERTENSION SP 11/16/2017 DIMITRY MONTES MD Ot I25. 10 SP HEART DISEASE OF [place] CORONARY SP 11/16/2017 DIMITRY MONTES MD Ot K21. 9 SPESOPHAGEAL REFLUX DISEASE WITHOUT SP 11/16/2017 DIMITRY MONTES MD Ot Z11. 2 SP FOR SCREENING FOR OTHER BACTER SP 11/16/2017 DIMITRY MONTES MD Ot Z68. 41 SP MASS INDEX (BMI) 40.0-44.9, ADULT SP 11/16/2017 DIMITRY MONTES MD Ot Z79.899 SP OTHER PERSONAL SECURITY SPECIALIST (CURRENT) DRUG THERAPY SP 11/16/2017 DIMITRY MONTES MD, Ot Z82. 49 SP HX OF [place] HEART DIS AND OTH DI SP 11/16/2017 DIMITRY MONTES MD Ot Z88. 8 SP STATUS TO OTH DRUG/MEDS/BIOL SUB SP 11/21/2017 KARIME DELUNA Ot E78.2 SP MIXED HYPERLIPIDEMIA SP 11/21/2017 KARIME DELUNA Ot I10 SP ESSENTIAL (PRIMARY) HYPERTENSION SP 11/21/2017 KARIME DELUNA Ot SP ATHSCL HEART DISEASE OF [place] CORONARY SP 11/21/2017 KARIME DELUNA Ot K21.9 SP GASTRO-ESOPHAGEAL REFLUX DISEASE WITHOUT SP 12/01/2017 KARIME DELUNA Ot E78.2 SP MIXED HYPERLIPIDEMIA SP 12/01/2017 KARIME DELUNA Ot I10 SP ESSENTIAL (PRIMARY) HYPERTENSION SP 12/01/2017 KARIME DELUNA Ot SP ATHSCL HEART DISEASE OF [place] CORONARY SP 12/01/2017 KARIME DELUNA Ot K21.9 SP GASTRO-ESOPHAGEAL REFLUX DISEASE WITHOUT SP 12/12/2017 JYOTI, DIMITRY W 272.4 OTHER SP UNSPECIFIED HYPERLIPIDEMIA SP 12/12/2017 JYOTI, BASHAR W 401.0 SP ESSENTIAL HYPERTENSION SP 12/12/2017 JYOTI, BASHAR A 414.01 SP ATHEROSCLEROSIS OF [place] CORONARY ARTERY SP 12/12/2017 JYOTI, BASHAR W 530.81 SP REFLUX SP 12/12/2017 [facility], BASHAR W E78.5 SP UNSPECIFIED SP 12/12/2017 JYOTI, BASHAR W I10 ESSENTIAL SP(PRIMARY) HYPERTENSION SP 12/12/2017 JYTOI, BASHAR A I25.10 ATHSCL SPHEART DISEASE OF [place] CORONARY ARTERY W/O ANG PCTRS SP 12/12/2017 JYOTI, DIMITRY W K21.9 GASTRO- SP REFLUX DISEASE WITHOUT ESOPHAGITIS SP 12/15/2017 Reji Gómez W V45.82 SP TRANSLUMINAL CORONARY ANGIOPLASTY, POSTSURGICAL STATUS SP 12/15/2017 Reji Gómez W Z98.61 SP ANGIOPLASTY STATUS SP 12/15/2017 Reji Gómez W V45.82 SP TRANSLUMINAL CORONARY ANGIOPLASTY, POSTSURGICAL STATUS SP 12/15/2017 Reji Gómez W Z98.61 SP ANGIOPLASTY STATUS SP 12/22/2017 Aileen Farrell W 491.21 SP CHRONIC BRONCHITIS WITH (ACUTE) EXACERBATION SP 12/22/2017 Aileen Farrell W J44.1 SP OBSTRUCTIVE PULMONARY DISEASE WITH (ACUTE) EXACERBATION SP 12/24/2017 Bud, Aileen W 401.0 SP ESSENTIAL HYPERTENSION SP 12/24/2017 Bud, Aileen W 414.01 SP ATHEROSCLEROSIS OF [place] CORONARY ARTERY SP 12/24/2017 Bud, Aileen W 466.0 SP SP 12/24/2017 Bud, Aileen W 477.8 SP RHINITIS DUE TO OTHER ALLERGEN SP 12/24/2017 Bud, Aileen W 491.21 SP CHRONIC BRONCHITIS WITH (ACUTE) EXACERBATION SP 12/24/2017 Bud, Aileen A 491.22 SP CHRONIC BRONCHITIS WITH ACUTE BRONCHITIS SP 12/24/2017 Bud, Aileen W I10 SP (PRIMARY) HYPERTENSION SP 12/24/2017 Aileen Farrell W I25.10 SP HEART DISEASE OF [place] CORONARY ARTERY W/O ANG PCTRS SP 12/24/2017 Aileen Farrell W J20.9 ACUTE SP UNSPECIFIED SP 12/24/2017 Aileen Farrell W J30.2 OTHER SP ALLERGIC RHINITIS SP 12/24/2017 Aileen Farrell A J44.0 SP OBSTRUCTIVE PULMON DISEASE W ACUTE LOWER RESP INFCT SP 12/24/2017 Bud Aileen W J44.1 SP OBSTRUCTIVE PULMONARY DISEASE WITH (ACUTE) EXACERBATION SP 01/01/2018 W 429.2 CARD IOVASCULAR SP UNSPECIFIED SP 01/01/2018 A 493.22 CHR ONIC SP ASTHMA, WITH (ACUTE) EXACERBATION SP 01/01/2018 W I25.10 ATH EROSCLEROTIC SP DISEASE OF [place] CORONARY ARTERY WITHOUT ANGINA PECTORIS SP 01/01/2018 A J44.1 ACADEMIC COACH ELVI OBSTRUCTIVE SPPULMONARY DISEASE WITH (ACUTE) EXACERBATION SP 01/02/2018 Reji Gómez V45.82 SP TRANSLUMINAL CORONARY ANGIOPLASTY, POSTSURGICAL STATUS SP 01/02/2018 Reji Gómez Z98.61 SP ANGIOPLASTY STATUS SP 02/03/2018 Reji Gómez V45.82 SP TRANSLUMINAL CORONARY ANGIOPLASTY, POSTSURGICAL STATUS SP 02/03/2018 Reji Gómez Z98.61 SP ANGIOPLASTY STATUS SP 02/08/2018 W 486 PNEUMO HI, ORGANISM SP SP 02/08/2018 W J18.9 PNEU MONIA, SP ORGANISM SP 02/13/2018 Adeline Orta W 486 SP ORGANISM UNSPECIFIED SP 02/13/2018 Adeline Orta W J18.9 SP UNSPECIFIED ORGANISM SP 02/20/2018 Bud, Aileen W 486 SP ORGANISM UNSPECIFIED SP 02/20/2018 Bud, Aileen W J18.9 SP UNSPECIFIED ORGANISM SP 02/20/2018 Bud, Aileen W 486 SP ORGANISM UNSPECIFIED SP 02/20/2018 Bud, Aileen W J18.9 SP UNSPECIFIED ORGANISM SP 03/27/2018 Reji Gómez V45.82 SP TRANSLUMINAL CORONARY ANGIOPLASTY, POSTSURGICAL STATUS SP 03/27/2018 Reji Gómez Z98.61 SP ANGIOPLASTY STATUS SP 04/03/2018 DIMITRY MONTES 486 SP ORGANISM UNSPECIFIED SP 04/03/2018 DIMITRY MONTES J18.9 SP UNSPECIFIED ORGANISM SP 04/03/2018 DIMITRY MONTES W 486 SP ORGANISM UNSPECIFIED SP 04/03/2018 DIMITRY MONTES J18.9 SP UNSPECIFIED ORGANISM SP 12/28/2018 DIMITRY MONTES MD Ot 272. 4 SP NEC/NOS SP 12/28/2018 JYOTI CALIXTO, DIMITRY Levin Ot 278. 01 SP OBESITY SP 12/28/2018 DIMITRY MONTES MD Ot 401. 9 SP NOS SP 12/28/2018 JYOTI CALIXTO, DIMITRY Levin Ot 414. 00 SP ATHEROSCLER NOS TYPE VESSEL, NATIV SP 12/28/2018 DIMITRY MONTES MD Ot 272. 4 SP NEC/NOS SP 12/28/2018 DIMITRY MONTES MD Ot 278. 01 SP OBESITY SP 12/28/2018 JYOTI CALIXTO, DIMITRY Levin Ot 401. 9 SP NOS SP 12/28/2018 JYOTI CALIXTO, DIMITRY Levin Ot 414. 00 SP ATHEROSCLER NOS TYPE VESSEL, NATIV SP 12/28/2018 DIMITRY MONTES MD Ot 272. 4 SP NEC/NOS SP 12/28/2018 DIMITRY MONTES MD Ot 278. 01 SP OBESITY SP 12/28/2018 DIMITRY MONTES MD Ot 401. 9 SP NOS SP 12/28/2018 DIMITRY MONTES MD Ot 414. 00 SP ATHEROSCLER NOS TYPE VESSEL, NATIV SP 12/28/2018 DIMITRY MONTES MD Ot V85. 41 SP MASS INDEX 40.0-44.9, ADULT SP 12/28/2018 DIMITRY MONTES MD Ot 518. 89 SP DISEASES OF LUNG, NEC SP 12/28/2018 KARIME DELUNA Ot E78.2 SP MIXED HYPERLIPIDEMIA SP 12/28/2018 KARIME DELUNA Ot I10 SP ESSENTIAL (PRIMARY) HYPERTENSION SP 12/28/2018 KARIME DELUNA Ot SP ATHSCL HEART DISEASE OF [place] CORONARY SP 12/28/2018 KARIME DELUNA Ot K21.9 SP GASTRO-ESOPHAGEAL REFLUX DISEASE WITHOUT SP 01/01/2019 DIMITRY MONTES MD Ot E78. 2 SP HYPERLIPIDEMIA SP 01/01/2019 DIMITRY MONTES MD Ot I10 SP (PRIMARY) HYPERTENSION SP 01/01/2019 DIMITRY MONTES MD Ot I25. 10 SP HEART DISEASE OF [place] CORONARY SP 01/01/2019 DIMITRY MONTES MD Ot J44. 9 SP OBSTRUCTIVE PULMONARY DISEASE, U SP 01/01/2019 DIMITRY MONTES MD Ot K21. 9 SPESOPHAGEAL REFLUX DISEASE WITHOUT SP 01/09/2019 DIMITRY MONTES MD Ot E66. 01 SP (SEVERE) OBESITY DUE TO EXCESS CA SP 01/09/2019 DIMITRY MONTES MD Ot E78. 2 SP HYPERLIPIDEMIA SP 01/09/2019 DIMITRY MONTES MD Ot I10 SP (PRIMARY) HYPERTENSION SP 01/09/2019 DIMITRY MONTES MD Ot I25. 10 SP HEART DISEASE OF [place] CORONARY SP 01/09/2019 DIMITRY MONTES MD Ot I65. 29 SP AND STENOSIS OF UNSPECIFIED CA SP 01/09/2019 DIMITRY MONTES MD Ot I73. 9 SP VASCULAR DISEASE, UNSPECIFIED SP 01/09/2019 DIMITRY MONTES MD Ot J43. 9 SP UNSPECIFIED SP 01/09/2019 DIMITRY MONTES MD Ot K21. 9 SPESOPHAGEAL REFLUX DISEASE WITHOUT SP 01/09/2019 DIMITRY MONTES MD Ot M19. 91 SP OSTEOARTHRITIS, UNSPECIFIED SITE SP 01/09/2019 DIMITRY MONTES MD Ot R07. 9 SP PAIN, UNSPECIFIED SP 01/09/2019 DIMITRY MONTES MD Ot Z68. 41 SP MASS INDEX (BMI) 40.0-44.9, ADULT SP 01/09/2019 DIMITRY MONTES MD Ot Z79.899 SP OTHER PERSONAL SECURITY SPECIALIST (CURRENT) DRUG THERAPY SP 01/09/2019 DIMITRY MONTES MD Ot Z82. 49 SP HX OF [place] HEART DIS AND OTH DI SP 01/09/2019 DIMITRY MONTES MD Ot Z87.891 SP PERSONAL HISTORY OF NICOTINE DEPENDENCE SP 01/09/2019 DIMITRY MONTES MD Ot Z95. 5 SP OF CORONARY ANGIOPLASTY IMPLANT SP 01/10/2019 DIMITRY MONTES MD Ot E66. 01 SP (SEVERE) OBESITY DUE TO EXCESS CA SP 01/10/2019 DIMITRY MONTES MD Ot E78. 2 SP HYPERLIPIDEMIA SP 01/10/2019 DIMITRY MONTES MD Ot I10 SP (PRIMARY) HYPERTENSION SP 01/10/2019 DIMITRY MONTES MD Ot I25. 10 SP HEART DISEASE OF [place] CORONARY SP 01/10/2019 DIMITRY MONTES MD Ot I65. 29 SP AND STENOSIS OF UNSPECIFIED CA SP 01/10/2019 DIMITRY MONTES MD Ot I73. 9 SP VASCULAR DISEASE, UNSPECIFIED SP 01/10/2019 DIMITRY MONTES MD Ot J43. 9 SP UNSPECIFIED SP 01/10/2019 DIMITRY MONTES MD Ot K21. 9 SPESOPHAGEAL REFLUX DISEASE WITHOUT SP 01/10/2019 DIMITRY MONTES MD Ot M19. 91 SP OSTEOARTHRITIS, UNSPECIFIED SITE SP 01/10/2019 DIMITRY MONTES MD Ot R07. 9 SP PAIN, UNSPECIFIED SP 01/10/2019 DIMITRY MONTES MD Ot Z68. 41 SP MASS INDEX (BMI) 40.0-44.9, ADULT SP 01/10/2019 DIMITRY MONTES MD Ot Z79.899 SP OTHER PERSONAL SECURITY SPECIALIST (CURRENT) DRUG THERAPY SP 01/10/2019 DIMITRY MONTES MD Ot Z82. 49 SP HX OF [place] HEART DIS AND OTH DI SP 01/10/2019 DIMITRY MONTES MD Ot Z87.891 SP PERSONAL HISTORY OF NICOTINE DEPENDENCE SP 01/10/2019 DIMITRY MONTES MD Ot Z95. 5 SP OF CORONARY ANGIOPLASTY IMPLANT SP 01/11/2019 DIMITRY MONTES MD Ot E66. 01 SP (SEVERE) OBESITY DUE TO EXCESS CA SP 01/11/2019 DIMITRY MONTES MD Ot E78. 2 SP HYPERLIPIDEMIA SP 01/11/2019 DIMITRY MONTES MD Ot I10 SP (PRIMARY) HYPERTENSION SP 01/11/2019 DIMITRY MONTES MD Ot I25. 10 SP HEART DISEASE OF [place] CORONARY SP 01/11/2019 DIMITRY MONTES MD Ot I65. 29 SP AND STENOSIS OF UNSPECIFIED CA SP 01/11/2019 DIMITRY MONTES MD Ot I73. 9 SP VASCULAR DISEASE, UNSPECIFIED SP 01/11/2019 DIMITRY MONTES MD Ot J43. 9 SP UNSPECIFIED SP 01/11/2019 DIMITRY MONTES MD Ot K21. 9 SPESOPHAGEAL REFLUX DISEASE WITHOUT SP 01/11/2019 DIMITRY MONTES MD Ot M19. 91 SP OSTEOARTHRITIS, UNSPECIFIED SITE SP 01/11/2019 DIMITRY MONTES MD Ot R07. 9 SP PAIN, UNSPECIFIED SP 01/11/2019 DIMITRY MONTES MD Ot Z68. 41 SP MASS INDEX (BMI) 40.0-44.9, ADULT SP 01/11/2019 DIMITRY MONTES MD Ot Z79.899 SP OTHER ASSISTED (CURRENT) DRUG THERAPY SP 01/11/2019 DIMITRY MONTES MD Ot Z82. 49 SP HX OF [place]HE[place] HEART DIS AND OTH DI SP 01/11/2019 DIMITRY MONTES MD, Ot Z87.891 SP PERSONAL HISTORY OF NICOTINE DEPENDENCE SP 01/11/2019 DIMITRY MONTES MD Ot Z95. 5 SP OF CORONARY ANGIOPLASTY IMPLANT SP 01/15/2019 DIMITRY MONTES MD Ot E66. 01 SP (SEVERE) OBESITY DUE TO EXCESS CA SP 01/15/2019 DIMITRY MONTES MD Ot E78. 2 SP HYPERLIPIDEMIA SP 01/15/2019 DIMITRY MONTES MD Ot I10 SP (PRIMARY) HYPERTENSION SP 01/15/2019 DIMITRY MONTES MD Ot I25. 10 SP HEART DISEASE OF [place] CORONARY SP 01/15/2019 DIMITRY MONTES MD Ot I65. 29 SP AND STENOSIS OF UNSPECIFIED CA SP 01/15/2019 DIMITRY MONTES MD Ot I73. 9 SP VASCULAR DISEASE, UNSPECIFIED SP 01/15/2019 DIMITRY MONTES MD Ot J43. 9 SP UNSPECIFIED SP 01/15/2019 DIMITRY MONTES MD Ot K21. 9 SPESOPHAGEAL REFLUX DISEASE WITHOUT SP 01/15/2019 DIMITRY MONTES MD Ot M19. 91 SP OSTEOARTHRITIS, UNSPECIFIED SITE SP 01/15/2019 DIMITRY MONTES MD Ot R07. 9 SP PAIN, UNSPECIFIED SP 01/15/2019 DIMITRY MONTES MD Ot Z68. 41 SP MASS INDEX (BMI) 40.0-44.9, ADULT SP 01/15/2019 DIMITRY MONTES MD Ot Z79.899 SP OTHER ASSISTED (CURRENT) DRUG THERAPY SP 01/15/2019 DIMITRY MONTES MD, Ot Z82. 49 SP HX OF [place]HE[place] HEART DIS AND OTH DI SP 01/15/2019 DIMITRY MONTES MD, Ot Z87.891 SP PERSONAL HISTORY OF NICOTINE DEPENDENCE SP 01/15/2019 DIMITRY MONTES MD, Ot Z95. 5 SP OF CORONARY ANGIOPLASTY IMPLANT SP 01/22/2019 DIMTIRY MONTES MD, Ot E78. 2 SP HYPERLIPIDEMIA SP 01/22/2019 DIMITRY MONTES MD, Ot I10 SP (PRIMARY) HYPERTENSION SP 01/22/2019 DIMITRY MONTES MD, Ot I25. 10 SP HEART DISEASE OF [place] CORONARY SP 01/22/2019 DIMITRY MONTES MD, Ot J44. 9 SP OBSTRUCTIVE PULMONARY DISEASE, U SP 01/22/2019 DIMITRY MONTES MD, Ot K21. 9 SPESOPHAGEAL REFLUX DISEASE WITHOUT SP 06/12/2019 CEDRIC KRUEGER 723.4 SP NEURITIS OR RADICULITIS NOS SP 06/12/2019 CEDRIC KRUEGER M54.12 SP CERVICAL REGION SP 06/25/2019 CEDRIC KRUEGER 723.4 SP NEURITIS OR RADICULITIS NOS SP 06/25/2019 CEDRIC KRUEGER M54.12 SP CERVICAL REGION SP 07/03/2019 RENAY PONCE MD, Ot E78.2 SP MIXED HYPERLIPIDEMIA SP 07/03/2019 RENAY PONCE MD, Ot G56.02 SP CARPAL TUNNEL SYNDROME, LEFT UPPER LIMB SP 07/03/2019 RENAY PONCE MD, Ot I1 0 SP (PRIMARY) HYPERTENSION SP 07/03/2019 RENAY PONCE MD, Ot 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 SP 07/03/2019 RENAY PONCE MD, Ot I65.29 SP OCCLUSION AND STENOSIS OF UNSPECIFIED CA SP 07/03/2019 RENAY PONCE MD, Ot J34.9 SP UNSPECIFIED DISORDER OF NOSE AND NASAL S SP 07/03/2019 RENAY PONCE MD, Ot K21.9 SP GASTRO-ESOPHAGEAL REFLUX DISEASE WITHOUT SP 07/03/2019 RENAY PONCE MD, Ot M19.90 SP UNSPECIFIED OSTEOARTHRITIS, UNSPECIFIED SP 07/03/2019 RENAY PONCE MD, Ot Z79.899 SP OTHER ASSISTED (CURRENT) DRUG THERAPY SP 07/03/2019 RNEAY PONCE MD, Ot Z80.9 SP FAMILY HISTORY OF MALIGNANT NEOPLASM, UN SP 07/03/2019 RENAY PONCE MD, Ot Z82.3 SP FAMILY HISTORY OF STROKE SP 07/03/2019 RENAY PONCE MD, Ot Z82.49 SP FAMILY HX OF [place] HEART DIS AND OTH DI SP 07/03/2019 RENAY PONCE MD Ot Z87.891 SP PERSONAL HISTORY OF NICOTINE DEPENDENCE SP 07/03/2019 RENAY PONCE MD Ot Z99.89 SP 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 ENABLING MACHINES AN SP 07/05/2019 RENAY PONCE MD, Ot Z01.818 SP ENCOUNTER FOR OTHER PREPROCEDURAL EXAMIN SP 07/09/2019 RENAY OPNCE MD Ot E78.2 SP MIXED HYPERLIPIDEMIA SP 07/09/2019 RENAY PONCE MD Ot G56.02 SP CARPAL TUNNEL SYNDROME, LEFT UPPER LIMB SP 07/09/2019 RENAY PONCE MD Ot I1 0 SP (PRIMARY) HYPERTENSION SP 07/09/2019 RENAY PONCE MD Ot 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 SP 07/09/2019 RENAY PONCE MD Ot I65.29 SP OCCLUSION AND STENOSIS OF UNSPECIFIED [place] SP 07/09/2019 RENAY PONCE MD Ot J34.9 SP UNSPECIFIED DISORDER OF NOSE AND NASAL S SP 07/09/2019 RENAY PONCE MD Ot K21.9 SP GASTRO-ESOPHAGEAL REFLUX DISEASE WITHOUT SP 07/09/2019 RENAY PONCE MD Ot M19.90 SP UNSPECIFIED OSTEOARTHRITIS, UNSPECIFIED SP 07/09/2019 RENAY PONCE MD Ot Z79.899 SP OTHER ASSISTED (CURRENT) DRUG THERAPY SP 07/09/2019 RENAY PONCE MD Ot Z80.9 SP FAMILY HISTORY OF MALIGNANT NEOPLASM, UN SP 07/09/2019 RENAY PONCE MD, Ot Z82.3 SP FAMILY HISTORY OF STROKE SP 07/09/2019 RENAY PONCE MD Ot Z82.49 SP FAMILY HX OF [place] HEART DIS AND OTH DI SP 07/09/2019 RENAY PONCE MD Ot Z87.891 SP PERSONAL HISTORY OF NICOTINE DEPENDENCE SP 07/09/2019 RENAY PONCE MD Ot Z99.89 SP 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 ENABLING MACHINES AN SP 07/10/2019 RENAY PONCE MD Ot E78.2 SP MIXED HYPERLIPIDEMIA SP 07/10/2019 RENAY PONCE MD, Ot G56.02 SP CARPAL TUNNEL SYNDROME, LEFT UPPER LIMB SP 07/10/2019 RENAY PONCE MD, Ot I1 0 SP (PRIMARY) HYPERTENSION SP 07/10/2019 RENAY PONCE MD, Ot 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 SP 07/10/2019 RENAY PONCE MD, Ot I65.29 SP OCCLUSION AND STENOSIS OF UNSPECIFIED [place] SP 07/10/2019 RENAY PONCE MD, Ot J34.9 SP UNSPECIFIED DISORDER OF NOSE AND NASAL S SP 07/10/2019 RENAY PONCE MD Ot K21.9 SP GASTRO-ESOPHAGEAL REFLUX DISEASE WITHOUT SP 07/10/2019 RENAY PONCE MD, Ot M19.90 SP UNSPECIFIED OSTEOARTHRITIS, UNSPECIFIED SP 07/10/2019 RENAY PONCE MD, Ot Z79.899 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 Results Test Result Range POS Comprehensive Metabolic Panel - 09/21/16 10:05 POS Albumin 4.5 g/dL 3.6-5.1 SP ALP 50 U/L 35-130 SP ALT 26 U/L 6-45 SP Anion Gap 14 6-14 SP AST 23 U/L 2-40 SP BUN 11 mg/dL 5-25 SP Calcium 9.8 mg/dL 8.3-10.4 SP Chloride 102 mmol/L 95-114 SP CO2 31 mEq/L 22-33 SP Creat 0.74 mg/dL 0.50-1.50 SP eGFR 77 mL/min/1.73m2 >59 SP Globulin 2.6 g/dL 2.3-3.5 SP Glucose 103 mg/dL 70-110 SP Osmo 295 280-295 SP Potassium 4.0 mmol/L 3.5-5.3 SP Sodium 143 mmol/L 134-148 SP TBil 0.6 mg/dL 0.2-1.2 SP TP 7.1 g/dL 6.0-8.3 SP Lipid Panel - 09/21/16 10:05 POS C/HDL 3.4 3.7-6.7 SP Cholesterol 210 mg/dL 100-240 SP HDL 61 mg/dL 30-85 SP LDL-Calculated 113 mg/dL 0-100 SP Trig 182 mg/dL 35-160 SP VLDL 36 mg/dL 0-42 SP Thyroid Stimulating Hormone - 11/14/16 0 8:41 POS TSH 2.43 mIU/mL 0.32-5.00 SP Lipid Panel - 03/20/17 07:59 POS C/HDL 4.0 3.7-6.7 SP Cholesterol 181 mg/dL 100-240 SP HDL 45 mg/dL 30-85 SP LDL-Calculated 94 mg/dL 0-100 SP Trig 210 mg/dL 35-160 SP VLDL 42 mg/dL 0-42 SP Hepatic Panel - 03/20/17 07:59 POS Albumin 4.6 g/dL 3.6-5.1 SP ALP 53 U/L 35-130 SP ALT 22 U/L 6-45 SP AST 22 U/L 2-40 SP DBil 0.2 mg/dL 0.0-0.2 SP GGT 29 U/L 5-40 SP Globulin 2.9 g/dL 2.3-3.5 SP TBil 0.6 mg/dL 0.2-1.2 SP TP 7.5 g/dL 6.0-8.3 SP Automated blood complete blood count ([facility]) panel - 11/15/17 07:22 POS Blood leukocytes automated count (number/volume) 5.4 10*3/uL SP 4.3-11.0 SP Blood erythrocytes automated count (number/volume) 4.49 10*6/uL SP 4.35-5.85 SP Venous blood hemoglobin measurement (mass/volume) 13.7 g/dL SP16.0 Blood hematocrit (volume fraction) 40 % 35-52 SP Automated erythrocyte mean corpuscular volume 88 [ foz_us] SP99 Automated erythrocyte mean corpuscular h emoglobin (mass per erythrocyte) SP 31 pg 25-34 SP Automated erythrocyte mean corpuscular h emoglobin concentration measurement SP 35 g/dL 32-36 SP Automated erythrocyte distribution width ratio 14. 1 % 10.0- SP Automated blood platelet count (count/volume) 256 10*3/uL SP400 Automated blood platelet mean volume measurement 9.1 [foz_us] SP 7.4-10.4 SP PT panel in platelet poor plasma by coag ulation assay - 11/15/17 07:22 POS Prothrombin time (PT) in platelet poor plasma by coagu lation assay SP s 12.2-14.7 SP INR in platelet poor plasma or blood by coagulation as say 0.9 SP 0.8-1.4 SP Activated partial thromboplastin time (a PTT) in platelet poor plasma POS assay - 11/15/17 07:22 Activated partial thromboplastin time (a PTT) in platelet poor plasma POS assay 28 s 24-35 SP Comprehensive metabolic panel - 11/15/17 07:22 POS Serum or plasma sodium measurement (moles/volume) 139 mmol/L SP 135-145 SP Serum or plasma potassium measurement (moles/volume) 3.8 mmol/L SP 3.6-5.0 SP Serum or plasma chloride measurement (moles/volume) 101 mmol/L SP 98-107 SP Carbon dioxide 26 mmol/L 21-32 SP Serum or plasma anion gap determination (moles/volume) 12 mmol/L SP 5-14 SP Serum or plasma urea nitrogen measurement (mass/volume ) 17 mg/dL SP 7-18 SP Serum or plasma creatinine measurement (mass/volume) 0.84 mg/dL SP 0.60-1.30 SP Serum or plasma urea nitrogen/creatinine mass ratio 20 NRG SP Serum or plasma creatinine measurement w ith calculation of estimated glomerular SP rate > NRG SP Serum or plasma glucose measurement (mass/volume) 108 mg/dL SP105 Serum or plasma calcium measurement (mass/volume) 9.5 mg/dL SP10.1 Serum or plasma total bilirubin measurement (mass/volu me) 0.5 mg/dL SP 0.1-1.0 SP Serum or plasma alkaline phosphatase judy surement (enzymatic activity/volume) SP 55 U/L 40-136 SP Serum or plasma aspartate aminotransfera se measurement (enzymatic SP 23 U/L 5-34 SP Serum or plasma alanine aminotransferase measurement (enzymatic activity/volume) SP 21 U/L 0-55 SP Serum or plasma protein measurement (mass/volume) 7.6 g/dL SP8.2 Serum or plasma albumin measurement (mass/volume) 4.5 g/dL SP4.5 Lipid 1996 panel - 11/15/17 07:22 POS Serum or plasma triglyceride measurement (mass/volume) 143 mg/dL SP <150 SP Serum or plasma cholesterol measurement (mass/volume) 185 mg/dL SP < 200 SP Serum or plasma cholesterol in HDL measurement (mass/v olume) 51 mg/dL SP 40-60 SP Cholesterol in LDL [mass/volume] in serum or plasma by direct assay SP mg/dL 1-129 SP Serum or plasma cholesterol in VLDL measurement (mass/ volume) 29 mg/dL SP 5-40 SP Methicillin resistant Staphylococcus aur eus (MRSA) screening culture - 11/15/17 POS Methicillin resistant Staphylococcus aureus (MRSA) scr eening culture POS NRG SP Automated blood complete blood count (he mogram) panel - 11/16/17 03:20 POS Blood leukocytes automated count (number/volume) 6.4 10*3/uL SP 4.3-11.0 SP Blood erythrocytes automated count (number/volume) 4.25 10*6/uL SP 4.35-5.85 SP Venous blood hemoglobin measurement (mass/volume) 12.7 g/dL SP16.0 Blood hematocrit (volume fraction) 38 % 35-52 SP Automated erythrocyte mean corpuscular volume 89 [ foz_us] SP99 Automated erythrocyte mean corpuscular h emoglobin (mass per erythrocyte) SP 30 pg 25-34 SP Automated erythrocyte mean corpuscular h emoglobin concentration measurement SP 34 g/dL 32-36 SP Automated erythrocyte distribution width ratio 14. 3 % 10.0- SP Automated blood platelet count (count/volume) 242 10*3/uL SP400 Automated blood platelet mean volume measurement 9.2 [foz_us] SP 7.4-10.4 SP Whole blood basic metabolic panel - 10/05 03:20 POS Serum or plasma sodium measurement (moles/volume) 141 mmol/L SP 135-145 SP Serum or plasma potassium measurement (moles/volume) 3.8 mmol/L SP 3.6-5.0 SP Serum or plasma chloride measurement (moles/volume) 107 mmol/L SP 98-107 SP Carbon dioxide 19 mmol/L 21-32 SP Serum or plasma anion gap determination (moles/volume) 15 mmol/L SP 5-14 SP Serum or plasma urea nitrogen measurement (mass/volume ) 10 mg/dL SP 7-18 SP Serum or plasma creatinine measurement (mass/volume) 0.72 mg/dL SP 0.60-1.30 SP Serum or plasma urea nitrogen/creatinine mass ratio 14 NRG SP Serum or plasma creatinine measurement w ith calculation of estimated glomerular SP rate > NRG SP Serum or plasma glucose measurement (mass/volume) 107 mg/dL SP105 Serum or plasma calcium measurement (mass/volume) 8.9 mg/dL SP10.1 EKG - 12/12/17 09:19 POS EKG Complete SP BNP - 12/22/17 10:41 POS BNP 43.80 pg/ml 0.00-100.00 SP Troponin I - 12/22/17 15:55 POS Troponin <0.020 ng/mL 0.0-0.4 SP BMP - 12/24/17 07:25 POS Anion Gap 18 6-14 SP BUN 13 mg/dL 5-25 SP Calcium 9.9 mg/dL 8.3-10.4 SP Chloride 95 mmol/L 95-114 SP CO2 26 mEq/L 22-33 SP Creat 0.79 mg/dL 0.50-1.50 SP eGFR 71 mL/min/1.73m2 >59 SP Glucose 106 mg/dL 70-110 SP Osmo 280 280-295 SP Potassium 4.4 mmol/L 3.5-5.3 SP Sodium 135 mmol/L 134-148 SP BMP - 02/05/18 14:34 POS Anion Gap 21 6-14 SP BUN 11 mg/dL 5-25 SP Calcium 9.6 mg/dL 8.3-10.4 SP Chloride 92 mmol/L 95-114 SP CO2 22 mEq/L 22-33 SP Creat 0.79 mg/dL 0.50-1.50 SP eGFR 71 mL/min/1.73m2 >59 SP Glucose 102 mg/dL 70-110 SP Osmo 271 280-295 SP Potassium 3.8 mmol/L 3.5-5.3 SP Sodium 131 mmol/L 134-148 SP Urine Culture - 02/05/18 14:34 POS PRELIM CULTURE RESULTS >100,000 Gram Negativ e Lactose [employer] ASHOK / SP to Follow SP CULTURE SOURCE clean catch reflex SP Sensi - 02/05/18 14:34 POS FINAL CULTURE RESULTS Citrobacter freundii (Isolat e 1) SP Ampicillin/Sulbactam <=8/4 SP Ampicillin >16 SP Amoxicillin/K Clavulanate <=8/4 SP Ceftriaxone <=8 SP Ciprofloxacin >2 SP Nitrofurantoin <=32 SP Gentamicin <=4 SP Levofloxacin >4 SP Trimethoprim/ Sulfamethoxazole <=2/38 SP Tetracycline <=4 SP Amikacin <=16 SP Aztreonam <=8 SP Ceftazidime <=1 SP Ceftazidime/K Clavulanate <=0.25 SP Cephalothin 16 SP Cefotaxime <=2 SP Cefotaxime/K Clavulanate <=0.5 SP Cefoxitin <=8 SP Cefazolin <=8 SP Cefepime <=8 SP Cefuroxime <=4 SP Ertapenem <=1 SP Imipenem <=4 SP Meropenem <=4 SP Piperacillin/Tazobactam <=16 SP Piperacillin >64 SP Tigecycline <=2 SP Tobramycin <=4 SP Lipid Panel - 04/03/18 07:44 POS C/HDL 3.7 3.7-6.7 SP Cholesterol 177 mg/dL 100-240 SP HDL 48 mg/dL 30-85 SP LDL-Calculated 99 mg/dL 0-100 SP Trig 149 mg/dL 35-160 SP VLDL 30 mg/dL 0-42 SP Thyroid Stimulating Hormone - 10/09/18 0 9:13 POS TSH 2.37 mIU/mL 0.32-5.00 SP Complete urinalysis with reflex to cultu re - 01/09/19 13:08 POS Urine color determination YELLOW NRG SP Urine clarity determination CLEAR NR G SP Urine pH measurement by test strip 7 5-9 SP Specific gravity of urine by test strip 1.010 1.016-1.022 SP Urine protein assay by test strip, semi-quantitative NEGATIVE SP NEGATIVE SP Urine glucose detection by automated test strip NE GATIVE SP Erythrocytes detection in urine sediment by light micr oscopy NEGATIVE SP NEGATIVE SP Urine ketones detection by automated test strip NE GATIVE SP Urine nitrite detection by test strip NEGATIVE NEGATIVE SP Urine total bilirubin detection by test strip NEGA TIVE SP Urine urobilinogen measurement by automated test strip (mass/volume) SP NORMAL SP Urine leukocyte esterase detection by dipstick 1+ NEGATIVE SP Automated urine sediment erythrocyte cou nt by microscopy (number/high power SP NONE NRG SP Automated urine sediment leukocyte count by microscopy (number/high power field) SP [HPF] NRG SP Bacteria detection in urine sediment by light microsco py NEGATIVE SP NRG SP Squamous epithelial cells detection in u rine sediment by light microscopy SP 2-5 NRG SP Crystals detection in urine sediment by light microsco py PRESENT SP NRG SP Casts detection in urine sediment by light microscopy NONE SP Mucus detection in urine sediment by light microscopy NEGATIVE SP NRG SP Complete urinalysis with reflex to culture NO NRG SP Amorphous sediment detection in urine sediment by ligh t microscopy SP BA PHOSPHATE NRG SP Methicillin resistant Staphylococcus aur eus (MRSA) screening culture - 01/09/19 POS Methicillin resistant Staphylococcus aureus (MRSA) scr eening culture POS NRG SP Automated blood complete blood count (he mogram) panel - 01/09/19 13:36 POS Blood leukocytes automated count (number/volume) 6.7 10*3/uL SP 4.3-11.0 SP Blood erythrocytes automated count (number/volume) 4.51 10*6/uL SP 4.35-5.85 SP Venous blood hemoglobin measurement (mass/volume) 13.4 g/dL SP16.0 Blood hematocrit (volume fraction) 40 % 35-52 SP Automated erythrocyte mean corpuscular volume 89 [ foz_us] SP99 Automated erythrocyte mean corpuscular h emoglobin (mass per erythrocyte) SP 30 pg 25-34 SP Automated erythrocyte mean corpuscular h emoglobin concentration measurement SP 33 g/dL 32-36 SP Automated erythrocyte distribution width ratio 14. 6 % 10.0- SP Automated blood platelet count (count/volume) 346 10*3/uL SP400 Automated blood platelet mean volume measurement 8.6 [foz_us] SP 7.4-10.4 SP PT panel in platelet poor plasma by coag ulation assay - 01/09/19 13:36 POS Prothrombin time (PT) in platelet poor plasma by coagu lation assay SP s 12.2-14.7 SP INR in platelet poor plasma or blood by coagulation as say 0.9 SP 0.8-1.4 SP Activated partial thromboplastin time (a PTT) in platelet poor plasma POS assay - 01/09/19 13:36 Activated partial thromboplastin time (a PTT) in platelet poor plasma POS assay 35 s 24-35 SP Comprehensive metabolic panel - 01/09/19 13:36 POS Serum or plasma sodium measurement (moles/volume) 139 mmol/L SP 135-145 SP Serum or plasma potassium measurement (moles/volume) 3.8 mmol/L SP 3.6-5.0 SP Serum or plasma chloride measurement (moles/volume) 102 mmol/L SP 98-107 SP Carbon dioxide 27 mmol/L 21-32 SP Serum or plasma anion gap determination (moles/volume) 10 mmol/L SP 5-14 SP Serum or plasma urea nitrogen measurement (mass/volume ) 14 mg/dL SP 7-18 SP Serum or plasma creatinine measurement (mass/volume) 0.82 mg/dL SP 0.60-1.30 SP Serum or plasma urea nitrogen/creatinine mass ratio 17 NRG SP Serum or plasma creatinine measurement w ith calculation of estimated glomerular SP rate > NRG SP Serum or plasma glucose measurement (mass/volume) 101 mg/dL SP105 Serum or plasma calcium measurement (mass/volume) 9.8 mg/dL SP10.1 Serum or plasma total bilirubin measurement (mass/volu me) 0.7 mg/dL SP 0.1-1.0 SP Serum or plasma alkaline phosphatase judy surement (enzymatic activity/volume) SP 47 U/L 40-136 SP Serum or plasma aspartate aminotransfera se measurement (enzymatic SP 22 U/L 5-34 SP Serum or plasma alanine aminotransferase measurement (enzymatic activity/volume) SP 23 U/L 0-55 SP Serum or plasma protein measurement (mass/volume) 7.4 g/dL SP8.2 Serum or plasma albumin measurement (mass/volume) 4.4 g/dL SP4.5 CALCIUM CORRECTED 9.5 mg/dL 8.5-10.1 SP Lipid 1996 panel - 01/09/19 13:36 POS Serum or plasma triglyceride measurement (mass/volume) 139 mg/dL SP <150 SP Serum or plasma cholesterol measurement (mass/volume) 176 mg/dL SP < 200 SP Serum or plasma cholesterol in HDL measurement (mass/v olume) 47 mg/dL SP 40-60 SP Cholesterol in LDL [mass/volume] in serum or plasma by direct assay SP mg/dL 1-129 SP Serum or plasma cholesterol in VLDL measurement (mass/ volume) 28 mg/dL SP 5-40 SP Draw Fee[i] - 02/20/19 11:23 POS Lipid Panel - 04/08/19 09:19 POS C/HDL 3.7 3.7-6.7 SP Cholesterol 198 mg/dL 100-240 SP HDL 54 mg/dL 30-85 SP LDL-Calculated 121 mg/dL 0-100 SP Trig 117 mg/dL 35-160 SP VLDL 23 mg/dL 0-42 SP Methicillin resistant Staphylococcus aur eus (MRSA) screening culture - 06/28/19 POS Methicillin resistant Staphylococcus aureus (MRSA) scr eening culture POS NRG SP Encounters ACCT No. Visit Date/Time Discharge Status POS Pt. Type Provider Facility Loc./Un it POS Complaint POS [id number] 06/11/2019 12:46:00 07/11/2019 13:00: 00 DIS SP Outpatient CEDRIC KRUEGER LEANNE SP [id number] 06/02/2019 00:00:00 06/02/2019 23:59: 00 DIS SP Outpatient PUJA KRUEGERNICKY PERDOMO SP [id number] 05/30/2019 14:35:00 05/30/2019 23:59: 00 DIS SP Outpatient PUJA KRUEGERNICKY PERDOMO SP [id number] 04/08/2019 09:13:00 04/08/2019 23:59: 00 DIS SP Outpatient BudAileen enriquez SP [id number] 02/26/2019 10:55:00 02/26/2019 23:59: 00 DIS SP Outpatient DUNG, GRAYSON SP [id number] 02/20/2019 10:40:00 02/20/2019 23:59: 00 DIS SP Outpatient Aileen Farrell SP [id number] 10/09/2018 09:09:00 10/09/2018 23:59: 00 DIS SP Outpatient DIMITRY MONTES SP [id number] 04/03/2018 07:41:00 04/03/2018 23:59: 00 DIS SP Outpatient DIMITRY MONTES SP SP [id number] 12/13/2017 07:54:00 03/27/2018 09:00: 00 DIS SP Outpatient Reji Gómez SP SP [id number] 03/05/2018 09:10:00 03/05/2018 23:59: 00 DIS SP Outpatient Aileen Farrell SP SP [id number] 02/20/2018 09:00:00 02/20/2018 23:59: 00 DIS SP Outpatient Aileen Farrell SP SP [id number] 02/13/2018 09:21:00 02/13/2018 23:59: 00 DIS SP Outpatient Adeline Orta SP SP [id number] 02/08/2018 10:09:00 02/08/2018 23:59: 00 DIS SP Outpatient Eduin Ortaya SP SP [id number] 02/05/2018 14:14:00 02/05/2018 23:59: 00 DIS SP Outpatient Aileen Farrell SP SP [id number] 12/22/2017 10:41:00 12/24/2017 15:30: 00 DIS SP Outpatient [facility] SP MED-SURG SP [id number] 12/12/2017 09:04:00 12/12/2017 23:59: 00 DIS SP Outpatient DIMITRY MONTES SP SP [id number] 10/30/2017 10:08:00 10/30/2017 23:59: 00 DIS SP Outpatient DIMITRY MONTES SP SP [id number] 04/25/2017 09:23:00 04/25/2017 23:59: 00 DIS SP Outpatient JYOTIDIMITRY VALADEZ SP SP [id number] 03/20/2017 07:56:00 03/20/2017 23:59: 00 DIS SP Outpatient JYOTIDIMITRY VALADEZ SP SP [id number] 11/15/2016 08:51:00 11/15/2016 23:59: 00 DIS SP Outpatient BudAileen enriquez SP SP [id number] 11/14/2016 08:36:00 11/14/2016 23:59: 00 DIS SP Outpatient BudAileen enriquez SP SP [id number] 09/21/2016 10:02:00 09/21/2016 23:59: 00 DIS SP Outpatient DIMITRY MONTES SP SP [id number] 07/23/2019 14:16:49 Document SP SP [id number] 02/08/2018 10:17:00 Document SP SP [id number] 01/01/2018 11:13:00 [place] [id number] 12/22/2017 10:43:55 Document SP SP [id number] 07/03/2019 09:40:00 13:55:00 SP DIS Outpatient RENAY PONCE MD [facility] SDC CARPAL TUNNEL SYNDRO ME SP [id number] 06/28/2019 10:37:00 11:00:00 SP DIS Outpatient RENAY PONCE MD [facility] PREOP CARPAL TUNNEL SYNDRO M LEFT SP [id number] 01/09/2019 12:36:00 20:30:00 SP DIS Outpatient DIMITRY MONTES MD [facility] CATH ABN STRESS TEST SP [id number] 12/31/2018 07:29:00 23:59:59 SP CLS Outpatient DIMITRY MONTES MD [facility] CARD CAD, HTN, COPD SP [id number] 11/15/2017 06:48:00 018 09:35:00 SP DIS Outpatient DIMITRY MONTES MD [facility] CATH ABN STRESS TEST SP [id number] 11/01/2017 07:53:00 018 23:59:59 SP CLS Outpatient FRANCOIS DELUNA SP [facility] CARD CAD SP [id number] 01/02/2015 08:40:00 015 23:59:59 SP CLS Outpatient DIMITRY MONTES MD [facility] RAD LUNG DENSITY ON XRAY SP [id number] 12/24/2014 10:46:00 015 19:04:00 SP DIS Outpatient DIMITRY MONTES MD [facility] CATH CAD HTN HLE ABNORMAL STRESS SP [id number] 12/17/2014 06:59:00 015 23:59:59 SP CLS Outpatient DIMITRY MONTES MD [facility] CARD HTN,HLP,CAD SP [id number] 12/16/2014 11:35:00 015 23:59:59 SP CLS Outpatient DIMITRY MONTES MD [facility] LUBNA HTN,HLP,CAD SP [id number] 12/09/2014 08:11:00 015 23:59:59 SP CLS Outpatient DIMITRY MONTES MD [facility]VO CAD,HTN,HLP, SP [id number] 08/30/2011 10:00:00 SP Registration SP
== END 2019-07-03 13:55 | disposition home or self-care (01) ==
LOC: SDC 09:40
PROVIDERS: ATTEND Orthopaedic Surgery
DX: G56.02 Carpal tunnel syndrome, left upper limb (principal); I10 Essential (primary) hypertension; I25.10 Atherosclerotic heart disease of native coronary artery without angina pectoris; I65.29 Occlusion and stenosis of unspecified carotid artery; E78.2 Mixed hyperlipidemia; K21.9 Gastro-esophageal reflux disease without esophagitis; J34.9 Unspecified disorder of nose and nasal sinuses; M19.90 Unspecified osteoarthritis, unspecified site; Z99.89 Dependence on other enabling machines and devices; Z87.891 Personal history of nicotine dependence; Z79.899 Other long term (current) drug therapy; Z82.49 Family history of ischemic heart disease and other diseases of the circulatory system; Z82.3 Family history of stroke; Z80.9 Family history of malignant neoplasm, unspecified

== ENCOUNTER → 2021-09-01 | Outpatient (CLI) | payer MEDICARE ==
[~2021-09-01] MED LIST changes: +ACHD5005 PO; +AMLO-250 PO; -AMLO5TAB9 PO; +ASPI-1238 PO; -ASPI-983 PO; -CALC-6 PO; +CALC1TAB84 PO; -HYDROcodone/APAP 7.5 MG/325 MG (LORTAB, LORCET PLUS) TABLET PO PRN; -POTA99TA21 PO; +POTA99TA26 PO
== END ==
LOC: CARD 14:30
PROVIDERS: ATTEND Internal Medicine Cardiovascular Disease
DX: I10 Essential (primary) hypertension (principal)
CPT/HCPCS: 93306

== ENCOUNTER → 2022-04-08 | Outpatient (CLI) | payer MEDICARE ==
[~2022-04-08] MED LIST changes: +CATHETER FLUSH 10 ML SYR IVP PRN; -FEXO-46 PO; +NF-ALLE180 PO
--- NOTE | 2022-04-08 12:14 | Diagnostic Imaging Report ---
INDICATION: Abdominal pain Patient was administered 5.5 mCi technetium 99m Choletec intravenously and imaging over the abdomen was performed. At 60 minutes the patient ingested Ensure and gallbladder ejection fraction was calculated. There is homogeneous uptake of activity by the liver with prompt excretion of activity into the common duct and gallbladder. There is normal passage of activity into the small bowel. Gallbladder ejection fraction is normal at 63%. IMPRESSION: Normal HIDA scan and gallbladder ejection fraction. Dictated by: Dictated on workstation # [id number]
== END ==
LOC: CARD 10:00
PROVIDERS: ATTEND Family Medicine
DX: R10.9 Unspecified abdominal pain (principal)
CPT/HCPCS: 78227; A9537

== ENCOUNTER → 2022-07-18 | Outpatient (CLI) | payer MEDICARE ==
[~2022-07-18] VITALS: Ht 160 cm; Wt 100.0 kg
[~2022-07-18] MED LIST changes: +ALBU8.5H6 IH; +REGADENOSON 0.4 MG/5 ML SYR (LEXISCAN) IV ONE; -RT-ALBUINH IH
[2022-07-18 09:17] VITALS: BP 147/82
[2022-07-18 09:19] VITALS: BP 147/82
--- NOTE | 2022-07-18 10:26 | Cardiology Stress Test Report ---
Stress Test Report Date of Procedure/Referring: Date of Procedure: Jul 18, 2022 PCP Silva Casey MD Admitting Physician Admitting Physician: Attending Physician: Aleksandra Graham Indications: HTN Baseline Heart Rate: 59 Baseline Blood Pressure: Blood Pressure Systolic: 147 Blood Pressure Diastolic: 82 Baseline Vitals Vital Signs Date Time Temp Pulse Resp B/P (MAP) Pulse Ox O2 Delivery O2 Flow Rate FiO2 07/18/22 09:17 79 17 147/82 (103) Baseline EKG: Baseline EKG: NSR Summary After explaining the procedure to the patient, she signed a consent and then brought to the stress nuclear laboratory. Patient received 0.4 mg Lexiscan for stress test, ECG, heart rate and blood pressure were monitored continuously. Resting and stress dose of radio tracer were injected, imaging was acquired and reviewed in short axis, horizontal long axis and vertical long axis views. TID: 1.01 SSS: 5 SDS: 3 EF: 81 1. Patient tolerated Lexiscan well 2. Breast attenuation with fixed defect at the apex. Overall there is no significant ischemia or infarction on SPECT images 3. Normal left ventricular size with normal contractility, ejection fraction 81% Copy Copies To 1: SILVA CASEY MD, BASHAR J MD Jul 18, 2022 10:26
== END ==
LOC: CARD 07:54
PROVIDERS: ATTEND Physician Assistant
DX: I10 Essential (primary) hypertension (principal)
CPT/HCPCS: 78452; 93017; A9502